=== PATIENT | female | born 1935 | race Caucasian/White ===

== ENCOUNTER 2019-06-09 11:31 | Outpatient (RCR) | payer MEDICARE, MEDICAID, SELFPAY ==
[2019-06-09 12:17] LABS: Thyroid Stimulating Hormone 3.89 uIU/mL (0.27-4.20)
== END 2019-06-26 23:59 | disposition home or self-care (01) ==
LOC: LAB 11:31
PROVIDERS: Family Provider Family Medicine; Visit Provider Family Medicine
DX: Z01.89 Encounter for other specified special examinations (principal)
CPT/HCPCS: 84443

== ENCOUNTER → 2020-07-04 14:06 | Outpatient (BNVA) | payer MEDICARE, MEDICAID, SELFPAY | PROVIDERS: Family Provider Family Medicine; Referring Provider Family Medicine; Visit Provider Specialist | DX: M17.0 Bilateral primary osteoarthritis of knee (principal) | CPT/HCPCS: 73560; 73565 ==

== ENCOUNTER 2020-09-16 14:55 | Outpatient (CLI) | payer MEDICARE, MEDICAID, SELFPAY ==
[2020-09-16 15:44] LABS: Basophils # 0.1 10^3/uL (0.0-0.1); Basophils % 1.2 %; Eosinophils # 0.3 10^3/uL (0.0-0.8); Eosinophils % 4.5 %; Hematocrit 33.3 % (37.0-47.0); Hemoglobin 10.4 g/dL (11.5-15.3); Lymphocytes # 1.6 10^3/uL (0.8-4.8); Lymphocytes % 27.2 %; Mean Corpuscular HGB Conc 31.2 g/dL (30.0-36.0); Mean Corpuscular Hemoglobin 31.6 pg (28.0-34.0); Mean Corpuscular Volume 101.2 fL (81-99); Mean Platelet Volume 9.4 fL (7.4-10.4); Monocytes # 0.5 10^3/uL (0.2-0.9); Monocytes % 7.6 %; Neutrophils # 3.55 10^3/uL (1.8-7.7); Neutrophils % 58.8 %; Nucleated Red Blood Cells % 0 %; Platelet Count 294 10^3/cmm (130-400); Red Blood Count 3.29 10^6/uL (4.1-5.3); Red Cell Distribution Width 12.6 % (12.1-15.1)
[2020-09-16 16:01] LABS: Anion Gap 14.2 (5-19); Blood Urea Nitrogen 27 mg/dL (8-23); Carbon Dioxide 27 mmol/L (22-29); Chloride 101 mmol/L (98-107); Glucose 120 mg/dL (65-115); Osmolality Calculated 292 mOsm/kg (285-295); Potassium 4.2 mmol/L (3.5-5.1); Sodium 138 mmol/L (136-145)
== END 2020-09-16 14:56 | disposition home or self-care (01) ==
PROVIDERS: PCP Family Medicine; Visit Provider Family Medicine
DX: R55 Syncope and collapse (principal)
CPT/HCPCS: 80048; 85025

== ENCOUNTER 2020-11-22 16:45 | Inpatient (IN) | payer MEDICARE, MEDICAID, SELFPAY ==
--- NOTE | 2020-11-18 13:42 | ECG_ITS ---
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 Measurements Intervals [place] Rate: 65 P: -27 TX: 213 QRS: -28 QRSD: 82 T: 15 QT: 411 QTc: 430 Interpretive Statements SINUS RHYTHM WITH FIRST DEGREE AV BLOCK LOW QRS VOLTAGE IN PRECORDIAL LEADS [QRS DEFLECTION < 1.0 mV IN CHEST LEADS] PATTERN CONSISTENT WITH PULMONARY DISEASE INFERIOR MYOCARDIAL INFARCTION [40+ ms Q WAVE AND/OR ST/T ABNORMALITY IN II/aVF], PROBABLY OLD MARKED ST ELEVATION, CONSIDER ANTEROSEPTAL INJURY [MARKED ST ELEVATION W/O NORMALLY INFLECTED T WAVE IN V1-V4] ACUTE [place] No previous ECG available for comparison Electronically Signed On 11-20-2020 9:45:41 CDT by Petty Rosario M.D. [id number]
[2020-11-18 14:00] VITALS: BMI 27.0
--- NOTE | 2020-11-18 14:21 | ANES.PREANE2 ---
Pre-Anesthetic Assessment Pre-Anesthetic Assessment: Height/Weight: Height 1.55 m Weight 64.864 kg Preop Diagnosis: Knee pain Proposed Procedure: Operation Date: 11/22/20 13:55 Proposed Procedures p Right Total Knee Arthroplasty 16047 M17.10(Right) - Madonna Zuniga MD Familial anesthetic complications: NOne Social: Social History: No alcohol and No tobacco Exam: Pre-Anes Outpt Exam: alert, oriented x 3, clear to auscultation bilaterally and regular rate & rhythm Airway: Cervical ROM: WNL MP: 2 Dentition: Other (missing) Pulmonary: Pulmonary: COPD (2 L NC at night) CV/HEM: CV/HEM: Afib Comments: Hx B/L PEs 3 years ago, patient states she had heart cath 3 years ago as well, and it was clear. Patient's family will try to get those records to us. Spoke with Dr. Rosario regarding EKG, states nothing acute is going on, but the brugada pattern could be accurate. Despite that he recommends no treatment at this time. Recommends ok to proceed with surgery but will need higher monitoring perioperatively for arrythmias. May be worth it to admit patient to Cardiac step down after surgery. GI: GI: GERD Anesthetic Plan: ASA status: 3 Anesthesia: Regional (specify below) Other: spinal Risk of > 500 ml blood loss (7ml/kg in children): No PFSH Anesthesia PFSH: Medical History A-fib COPD (chronic obstructive pulmonary disease) History of pulmonary embolus (PE) Hypothyroidism Social History Smoking and tobacco status: former smoker Alcohol intake: never Data Anesthesia CBC & Chem 7: 11/18/20 13:50 11/18/20 13:50 Cardiac Studies: No Data to Display
[2020-11-18 14:23] LABS: Basophils # 0.1 10^3/uL (0.0-0.1); Eosinophils # 0.2 10^3/uL (0.0-0.8); Eosinophils % 2.4 %; Hematocrit 35.6 % (37.0-47.0); Lymphocytes # 2.2 10^3/uL (0.8-4.8); Lymphocytes % 35.1 %; Mean Corpuscular HGB Conc 30.9 g/dL (30.0-36.0); Mean Corpuscular Hemoglobin 31.6 pg (28.0-34.0); Mean Corpuscular Volume 102.3 fL (81-99); Mean Platelet Volume 9.9 fL (7.4-10.4); Monocytes # 0.4 10^3/uL (0.2-0.9); Monocytes % 6.5 %; Neutrophils # 3.42 10^3/uL (1.8-7.7); Neutrophils % 54.2 %; Nucleated Red Blood Cells % 0 %; Platelet Count 246 10^3/cmm (130-400); Red Blood Count 3.48 10^6/uL (4.1-5.3); Red Cell Distribution Width 14.6 % (12.1-15.1); White Blood Count 6.3 10^3/uL (4.0-10.0)
[2020-11-18 14:35] LABS: Alanine Aminotransferase 7 U/L (0-33); Albumin Level 4.1 g/dL (3.5-5.2); Alkaline Phosphatase 66 IU/L (35-105); Anion Gap 13.6 (5-19); Aspartate Amino Transferase 16 U/L (0-32); Blood Urea Nitrogen 29 mg/dL (8-23); Calcium 9.1 mg/dL (8.5-10.5); Carbon Dioxide 28 mmol/L (22-29); Chloride 102 mmol/L (98-107); Globulin 3.1 g/dL (1.3-4.6); Glucose 99 mg/dL (65-115); Osmolality Calculated 294 mOsm/kg (285-295); Potassium 4.6 mmol/L (3.5-5.1); Sodium 139 mmol/L (136-145); Total Bilirubin 0.4 mg/dL (0.15-1.2); Total Protein 7.2 g/dL (6.6-8.7)
[2020-11-18 15:02] LABS: Add Urine Microscopic? NO; Charge for UA Resulting for Rev
[2020-11-18 15:11] LABS: Bilirubin Urine 1+ (Negative); Blood Urine Neg (Negative); Glucose Urine UA Norm (Normal); Ketones Urine Negative (Negative); Leukocyte Esterase Urine Negative (Negative); Nitrate Urine Negative (Negative); Protein Urine Neg (Negative); Urine Appearance Clear (CLEAR); Urine Color Yellow (Yellow); Urobilinogen Urine Norm (Negative); pH Urine 6 (5-7)
[2020-11-22] VITALS (20 sets, daily range): BP systolic 103–164; BP diastolic 29–77; PULSE 57–65; RESP 16–18; TEMP 35.6–36.7; O2SAT 90–97
[2020-11-22] MEDS: acetaminophen 1,000 MG/100 ML PIGGYBACK 400 MG IV ×2 (07:20→18:38)
[2020-11-22] MEDS: sodium chloride 0.9% 1,000 ML 30 ML IV (07:20)
--- NOTE | 2020-11-22 07:22 | P.ANESUD_ITS ---
Pre-Anesthetic Update Pre-Anesthetic Assessment: Date of Surgery/Procedure: 11/22/20 Preop Codi gnosis: Primary osteoarthritis right knee Proposed Procedure: Operation Date: 11/22/20 07:00 Proposed Procedures p Right Total Knee Arthroplasty 72822 M17.10(Right) - Madonna Zuniga MD Any changes to Pre-Anesthetic Assessment?: No Last Intake: Intake Last Liquid Date 11/22/20 Last Liquid Time 17:00 Last Solid Date 11/21/20 Last Solid Time 17:00 Vitals: Temperature 97.7 F 11/22/20 06:17 Temperature Source Temporal Artery S can 11/22/20 06:17 Pulse Rate 62 11/22/20 06:17 Pulse Rhythm 11/22/20 06:17 Pulse Strength 3+ Normal 11/22/20 06:17 Respiratory Rate 16 11/22/20 06:17 Blood Pressure 138/57 11/22/20 06:17 Blood Pressure Twila n 84 11/22/20 06:17 Pulse Oximetry 97 11/22/20 06:17 Oxygen Delivery Me thod 11/22/20 06:17 Exam: Pre-Anes Outpt Exam: alert, oriented x 3, clear to auscultation bilaterally and regular rate & rhythm Other Pertinent Information: Other Pertinent Information: SAB, adductor blk. Cardiac Studies: No Data to Display
[2020-11-22] MEDS: CELEcoxib 200 mg Capsule 400 MG PO (07:25)
--- NOTE | 2020-11-22 07:58 | P.HPUD_ITS ---
Surgery/Procedure H&P Update DATE OF PROCEDURE: November 22, 2020 DATE H&P PERFORMED: 11/07/20 H&P UPDATE INFORMATION: I have reviewed H&P completed within last 30 days, I have examined patient prior to procedure, No changes to prior documentation and H&P is in [facility] EMR on date indicated PREOP DIAGNOSIS: Primary osteoarthritis right knee PLANNED PROCEDURE: Operation Date: 11/22/20 07:00 Proposed Procedures p Right Total Knee Arthroplasty 15643 M17.10(Right) - Madonna Zuniga MD Related Problem List Diagnoses (1) Primary osteoarthritis of right knee:
--- NOTE | 2020-11-22 08:14 | PC.NURSE ---
IV STARTED BY DR LINTON
--- NOTE | 2020-11-22 14:13 | ANES.PROC ---
Anesthesia Procedures Procedure/Date: 11/22/20 Nerve Block ^: Nerve Block 1: Main Anesthesia: spinal anesthesia block Time Out Performed: Yes Consent: requested by attending/covering physician, from patient, risks and benefits reviewed and patient agrees to proceed Nerve block location: adductor canal (right) Anesthesia monitors applied: pulse oximetry, EKG, BP cuff and oxygen Nerve block position: supine Anesthetic Used: ropivicaine 0.5% Amount of anesthesia used (mL): 20 Ultrasound used to: recognize landmarks Nerve Stimulator Used?: No Interscalene/Femoral BLK: 4 stimuplex 21 g needle used for position and inplane approach and visualize local anesthetic spread Patient Tolerated Procedure: well Complications: none
[2020-11-22] MEDS: vancomycin 1,000 MG SDV 1000 MG (15:34)
[2020-11-22] MEDS: tranexamic acid 1,000 mg/10mL SDV 1000 MG (15:35)
[2020-11-22] MEDS: ceFAZolin 1,000 mg SDV 1000 MG (15:35)
--- NOTE | 2020-11-22 15:39 | SUR.OPER ---
Called daughter, Jen and notified her of start.
--- NOTE | 2020-11-22 17:04 | PM.PACU ---
Documented by User: Yoni Barakat CRNA 11/22/20 17:04 PACU note PACU note: VSS, Good respiratory effort, report to [employer]PER[employer] MANAGER Post-Anesthesia Exam: awake
--- NOTE | 2020-11-22 17:10 | P.CONIM_ITS ---
Providers/Reason For Consult Consulting Physician/Specialty*: MD Carl/internal medicine Reason for Consult*: Management of medical problems. Attending Physician: Madonna Zuniga MD Primary Care Provider: Milagros Pimentel MD, [facility] [place] [facility] History of Present Illness History of Present Illness History as per daughter. April Hampton is a 85 year old female with past medical history of A. 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 Patient underwent ORIF today. Tolerated procedure well. Estimated blood loss 20 cc getting 1000 cc fluid. As per daughter patient has not had any active medical problems. Has not had any fever, diarrhea, dysuria has been working well with physical therapy but limited recently because of arthritis. Respiratory patient does not have any chest pain or palpitations. No blood work in the system. Internal medicine consulted for management of medical problems. Review of Systems General: Reports: ROS unobtainable due to mental status Meds/Allergies Home Medications and Allergies Home Medications Medication Instructions Recorded Confirmed Last Taken Type albuterol sulfate 2.5 mg/0.5 mL 5 mg INHALATION Q6H 07/04/20 11/22/20 11/21/20 History solution for nebulization albuterol sulfate 90 mcg/actuation 1 inh INHALATION QID 07/04/20 11/22/20 Unknown History aerosol inhaler amiodarone 200 mg tablet 200 mg PO DAILY 07/04/20 11/22/20 11/21/20 History apixaban 5 mg tablet 5 mg PO BID 07/04/20 11/18/20 11/17/20 History gabapentin 300 mg capsule 200 mg PO TID cap 07/04/20 11/22/20 11/21/20 12:00 History levothyroxine 88 mcg capsule 88 mcg PO DAILY 07/04/20 11/22/20 11/22/20 05:00 History mirtazapine 15 mg tablet 15 mg PO DAILY 07/04/20 11/22/20 11/21/20 History omeprazole 20 mg capsule,delayed 20 mg PO DAILY 07/04/20 11/22/20 11/21/20 History release polyethylene glycol 3350 17 gram 17 g PO DAILY 07/04/20 11/22/20 Unknown History oral powder packet tramadol 50 mg tablet 50 mg PO Q6H PRN 07/04/20 11/18/20 Unknown History Allergies Allergy/AdvReac Type Severity Reaction Status Date / Time No Known Allergies Allergy Verified 11/22/20 06:22 Current Medications Current Medications Generic Name Dose Route Start Last Admin Trade Name Freq PRN Reason Stop Dose Admin Sodium Chloride 1,000 mls @ 30 mls/hr 11/22/20 06:15 11/22/20 07:20 Sodium Chloride 0.9% IV 11/23/20 06:14 30 mls/hr .Q24H ANGELINE Administration PFSH Acute PFSH: Medical History (Updated 11/23/20 @ 12:42 by Thaddeus Henry MD) A-fib COPD (chronic obstructive pulmonary disease) History of pulmonary embolus (PE) Hypothyroidism Shingles Family History (Updated 11/23/20 @ 12:46 by Thaddeus Henry MD) Other CAD (coronary artery disease) Diabetes Social History Smoking and tobacco status: former smoker Alcohol intake: never Vitals/I&O/Wt Last Vital Signs Temp 97.7 F 11/22/20 06:17 Pulse 62 11/22/20 06:17 Resp 16 11/22/20 06:17 BP 138/57 11/22/20 06:17 Pulse Ox 97 11/22/20 06:17 11/22/20 11/22/20 11/22/20 06:59 14:59 22:59 Intake Total 150 / 150 Balance 150 / 150 Physical Exam Narrative: EXAM NARRATIVE: General: Sedated but arousable, on nasal cannula. HEENT: PERRLA, pupils bilaterally equal and reactive Chest:Bronchial breath sounds b/l ,decreased air entry, equal good air entry bilaterally, no more fine basal crackles CVS: S1-S2 irregularly irregular, no tachycardia, no murmurs, no gallops, no rubs Abdomen: Soft, nontender, no organomegaly, bowel sounds present, morbidly obese Neuro: Sedated but arousable. Moving all limbs. Urinary Catheter Management^: [place]: Cath Placed During This Visit: yes Urinary Catheter Date of Insertion: 11/22/20 Urinary Catheter Time of Insertion: 13:35 A&P Assessment and plan (1) Primary osteoarthritis of knees, bilateral: Status: Acute (2) History of pulmonary embolus (PE): Status: Acute (3) COPD (chronic obstructive pulmonary disease): Status: Acute (4) A-fib: Status: Acute Additional A&P Information Degenerative osteoarthritis of bilateral knee/post total knee arthroplasty: Postoperative day 0. Anticoagulation, physical therapy, perioperative antibiotics, pain management as per Dr. Zuniga. Check CBC, CMP, iron panel, TSH, A1c, lipid panel, procalcitonin. Atrial fibrillation: Patient should be on telemetry. Continue with amiodarone as rate control medication. Continue with Eliquis 5 mg twice daily once okay with Dr. Zuniga. History of pulmonary embolism: Oxygen supplementation keeping saturation over 92%. Continue with Eliquis once okay with Dr. Zuniga. Continue other chronic medications. We will change treatment plan as per clinical picture. Full code. Regular cardiac diet once okay with Dr. Zuniga. Anticoagulation as per orthopedics, foot pumps bilateral. Thank you for consultation. Consult Attestations Medical Necessity Statement: As per primary team. Time Spent in Patient Care: Greater than 35 minutes (>than 50% of time spent in counselling and/or direct pt care on unit) . Coding Level of Care Code Acute Briar Wood Sorter for Emi Browne Diagnoses Primary osteoarthritis of knees, bilateral M17.0 Primary osteoarthritis of right knee M17.11 History of pulmonary embolus (PE) Z86.711 COPD (chronic obstructive pulmonary disease) J44.9 A-fib I48.91
--- NOTE | 2020-11-22 17:12 | XR_ITS ---
WS: [id number] Right knee, 2 views, 11/22/2020 Clinical Data: Status post right total knee Comparison: Bilateral knees, 07/04/2020 Findings: The right knee arthroplasty demonstrates the components are in good position. There is postoperative air in the joint space. Anterior surgical seng are present. XR/XR knee RT 3V* [id number] Impression: Right knee arthroplasty Kellgren-Inder Classification: NA
[2020-11-22] MEDS: fentaNYL 50 mcg/mL INJ 2mL IVP (17:14)
--- NOTE | 2020-11-22 17:14 | P.OP_ITS ---
Operative Report Date of procedure: November 22, 2020 Pre-op Diagnosis: Primary osteoarthritis right knee Post-op diagnosis: same Post-op Findings: Severe degenerative osteoarthritis Procedure Done: Right total knee arthroplasty Implants: The Gordon total knee system with a size 4 triathlon beaded posterior stabilized femur left, a triathlon titanium tibial component size 3 beaded, a triathlon X3 posterior stabilized tibial bearing insert size 3 X 9 mm and a beaded triathlon titanium asymmetric patella size 35 x 10 mm Specimens removed/disposition: Bone, disposed of Pathology: none sent Surgeon: Madonna Zuniga Cut Filer: [employer] [facility] OR technicians Anesthesia: MAC (With spinal, ASA 3) Estimated blood loss (mL): 20 Tourniquet time (min): 93 IV fluids (mL): 1,000 Urine output (mL): 200 Complications: None Findings: Severe degenerative osteoarthritis right knee with osteophytes. No flexion contracture. Condition: stable Disposition: PACU (Then to floor for postoperative rehabilitation, monitoring with history of PE, and medical management) Brief History: This 85-year-old woman is admitted to the hospital postoperatively following total knee arthroplasty. She had significant symptoms from her degenerative osteoarthritis of the knee which caused her to have significant issues with activities of daily living. She has a history of significant PE which caused her an extended hospitalization. She is chronically on Eliquis which has been discontinued. She will require inpatient monitoring and services to assure that she does not have a PE following this procedure. She will be placed on Eliquis postoperatively for DVT prophylaxis. Obviously, she will need to take this for a couple of days prior to being discharged back to the [place] [facility]. Procedure: The patient was brought to the operating theater, and after undergoing adequate spinal anesthesia with MAC, ASA 3, the right lower extremity was prepped with Dura-Prep and draped in usual fashion following placement of a tourniquet high on the leg. The leg was then draped free. Following prepping and draping, the leg was exsanguinated, and the tourniquet was elevated to 250 mm Hg for a total tourniquet time of 93 minutes. Prior to elevation of the tourniquet, but following exposure of the site of surgery, a surgical pause was performed. At the time of the surgical pause, we confirmed the site and side of surgery. Additionally, we confirmed the appropriate and timely administration of preoperative antibiotics, Ancef 2 g. and Transexemic acid 1 g. The availability of equipment was confirmed, and the patient's identity was verbalized as well. Following the surgical pause, an incision was made centering over the patella continuing proximally and distally as necessary to allow access to the knee joint. Dissection continued through skin and soft tissues using a scalpel. Hemostasis was obtained using electrocautery. The skin incision was followed by a median parapatellar arthrotomy. The leg was extended and the patella was everted. Following this, the leg was returned to flexed position. The distal femur was exposed and a drill hole was made in this for placement of the distal femoral jig. The distal femoral jig was set at 5? of valgus. The distal femoral cutting block was then placed in appropriate position, and an jose wing was used to confirm an appropriate amount of distal femur would be resected. The distal femoral resection was accomplished with 8 mm of bone being resected distally. After the distal femoral resection had been accomplished, the femur was measured and it measured a size 4. Medial lateral dimension also measured a size 4. A size 4 femoral cutting block was placed in position, and we were then able to accomplish the anterior, posterior and chamfer cuts. This jig was then removed and the notch guide was placed in position. With the notch guide in appropriate position, the notch was excised including resection of the anterior and posterior cruciate ligaments. This notch was to allow for the posterior stabilized femoral component. At this point, the femur was prepared and attention was directed to the proximal tibia. The posterior knee retractor was placed along with medial and lateral retractors. Further resection of the menisci was accomplished as we had better visualization. A complete meniscectomy was performed both medially and laterally with care being taken to protect the popliteus. Retractors were then placed so that the proximal tibia was well visualized. A drill hole was then made in the tibia for placement of the intramedullary guide. This guide was placed so that approximately 2 mm of bone would be resected from the deficient medial tibial plateau. The intramedullary guide was utilized supplemented with an extramedullary guide to assure appropriate alignment for the proximal tibial resection. The proximal tibial jig was then evaluated, pinned in position, and the proximal tibial resection was accomplished without difficulty. The jig was removed, and the proximal tibia was measured. It measured a size 3. We then attempted a trial reduction with a size 3 by 9 mm insert. The femoral component was placed in position for the trial reduction, and the knee was placed through range of motion. With this, there was excellent stability with excellent varus- valgus alignment with appropriate patellar tracking. Extension was noted to be full as well. This was felt to be the appropriate size insert. There was full extension and flexion without lift off and the rotation of the tibia was marked. Alignment was checked from the hip to the ankle, and this was noted to be appropriate as well. Attention was then directed to the patella. The patella was measured with a caliper. We resected sufficient patella to leave approximately 14 mm of patella remaining. Measurements of the patella then indicated that a size asymmetric 35 mm x 10 mm was the appropriate patellar size. We then placed the jig to drill for the 3 pegs of the press-fit patella, and these drill holes were made without incident. A trial patella was then placed, and the knee was placed through range of motion. The patella was noted to track nicely without evidence of subluxation. The femur was prepared for a press-fit femur by drilling 2 holes for the femoral pegs. All trial components were subsequently removed. The tibial tray was then pinned into position, and we broached the tibia for the stem of the tibial component. Subsequently, 4 drill holes were made for placement of the press-fit tibia. This was accomplished without difficulty. Care was taken to assure appropriate rotation of the tibia as well as appropriate position on the proximal tibia. The tibial tray was completely seated on the proximal tibia. Following broaching, the tibial guide was removed, and all surfaces were copiously irrigated. The surfaces were then dried and a bone plug was placed into the distal femur. Exparel was also injected at this point. The Tritanium tibia was impacted into position. The beaded femur was then impacted into position in a cementless fashion. The tibial insert was placed. The patella was pressed into position with a patellar clamp. The knee was irrigated with 20 mL of Betadine and 500 mL of normal saline, and this was allowed to remain in the knee for 3-4 minutes. The knee was then copiously irrigated and suctioned dry. Attention was then directed to closure. Closure was accomplished with 0 Vicryl in the fascial tissues. Following this, a 2-0 Monocryl was used in the subcutaneous tissues, and the skin was closed with skin seng. A sterile dressing was then placed consisting of dermabond Prineo, Telfa, 4x4's, sterile soft roll, and an Adán wrap. The patient was returned the Recovery Room in a satisfactory condition. X-rays were obtained there. The pat ient will be discharged to the floor for postoperative rehabilitation and pain management. Associated Problem List Diagnoses (1) Primary osteoarthritis of right knee:
--- NOTE | 2020-11-22 17:57 | SUR.PHASEI ---
1658 PT TO PACU AWAKE ALERT PT WAS A SPINAL ANESTHESIA WITH ADDUCTOR CANAL BLOCK, PT ABLE TO MOVE BILAT TOES, PT SPINAL LEVEL AT T-12 LEVEL, PT VERBALLY DENIES PAIN AND NAUSEA, C/O OF COLD, WARM BLANKETS X 4 TO PT, RT KNEE DRESSING D/IFIRST ICE TO KNEE X RAY HERE. DISTAL FOOT PINK WARM WITH STRONG REGULAR PULSE NOTED AND MARKED QUACH TO DD WITH LT YELLOW URINE TO TUBING AND BAG.
--- NOTE | 2020-11-22 17:59 | SUR.PHASEI ---
1735 PT REPORT CALLED TO FLOOR PT DAUGHTER IN WAITING ROOM UPDATED BY DR PATTEN AND ABLE TO WALK UP TO FLOOR WITH PT AND NURSE, PT TO FLOOR AWAKE ALERT TALKATIVE WITH STAFF AND DAUGHTER.
--- NOTE | 2020-11-22 18:24 | ANE.PACU2 ---
Inpatient post-anesthesia follow up: Airway intact: Yes Vital signs: Temperature 97.6 F Pulse Rate 62 Respiratory Rate 17 Blood Pressure 154/29 Pulse Oximetry 92 Oxygen Delivery Me thod Room Air Oxygen Flow Rate Fraction of Inspir ed Oxygen Hydration adequate: Yes Nausea and vomiting: No Pain level: 1 Mental status: Baseline
[2020-11-22 18:35] LABS: Basophils # 0.1 10^3/uL (0.0-0.1); Basophils % 0.9 %; Eosinophils # 0.2 10^3/uL (0.0-0.8); Eosinophils % 2.7 %; Hematocrit 34.9 % (37.0-47.0); Hemoglobin 10.9 g/dL (11.5-15.3); Lymphocytes % 38.8 %; Mean Corpuscular HGB Conc 31.2 g/dL (30.0-36.0); Mean Corpuscular Hemoglobin 32.1 pg (28.0-34.0); Mean Corpuscular Volume 102.6 fL (81-99); Mean Platelet Volume 9.7 fL (7.4-10.4); Monocytes # 0.4 10^3/uL (0.2-0.9); Monocytes % 4.9 %; Neutrophils # 4.07 10^3/uL (1.8-7.7); Neutrophils % 52.2 %; Nucleated Red Blood Cells % 0 %; Platelet Count 215 10^3/cmm (130-400); White Blood Count 7.8 10^3/uL (4.0-10.0)
[2020-11-22] MEDS: iron polysaccharide complex 150 mg Capsule PO (18:37)
[2020-11-22] MEDS: sennosides-docusate Tablet 2 TAB PO (18:37)
[2020-11-22] MEDS: apixaban 5 mg Tablet PO (18:38)
[2020-11-22] MEDS: oxyCODONE 5 mg IR Tab/Cap PO ×2 (18:38→22:31)
[2020-11-22 19:25] LABS: Procalcitonin 0.08 ng/mL (0-0.5); Thyroid Stimulating Hormone 3.62 uIU/mL (0.27-4.20)
[2020-11-22 19:41] LABS: Alanine Aminotransferase 9 U/L (0-33); Albumin Level 3.5 g/dL (3.5-5.2); Alkaline Phosphatase 63 IU/L (35-105); Aspartate Amino Transferase 17 U/L (0-32); Blood Urea Nitrogen 22 mg/dL (8-23); Calcium 8.3 mg/dL (8.5-10.5); Carbon Dioxide 22 mmol/L (22-29); Chloride 106 mmol/L (98-107); Globulin 2.9 g/dL (1.3-4.6); Glucose 90 mg/dL (65-115); Iron 72 ug/dL (37-145); Osmolality Calculated 291 mOsm/kg (285-295); Percent Saturation 24.3 % (20-50); Sodium 139 mmol/L (136-145); Total Bilirubin 0.3 mg/dL (0.15-1.2); Total Iron Binding Capacity 296 mcg/dl; Total Protein 6.4 g/dL (6.6-8.7); Unsaturated Iron Binding 224 ug/dL (112-347)
[2020-11-22 19:44] LABS: Anion Gap 15.5 (5-19); Potassium 4.5 mmol/L (3.5-5.1)
[2020-11-22] MEDS: chlorhexidine gluconate 0.12% Btl 473 mL 30 ML MUCOUS MEM (20:19)
[2020-11-22] MEDS: gabapentin 100 mg Capsule 200 MG PO (20:20)
[2020-11-23] VITALS (11 sets, daily range): BP systolic 103–117; BP diastolic 56–65; PULSE 65–74; RESP 12–18; TEMP 36.3–36.7; O2SAT 90–97
[2020-11-23 02:42] LABS: Basophils # 0.1 10^3/uL (0.0-0.1); Eosinophils # 0.1 10^3/uL (0.0-0.8); Eosinophils % 1.2 %; Hematocrit 30.6 % (37.0-47.0); Hemoglobin 9.5 g/dL (11.5-15.3); Lymphocytes # 1.2 10^3/uL (0.8-4.8); Lymphocytes % 16.6 %; Mean Corpuscular Hemoglobin 31.8 pg (28.0-34.0); Mean Corpuscular Volume 102.3 fL (81-99); Mean Platelet Volume 9.5 fL (7.4-10.4); Monocytes # 0.5 10^3/uL (0.2-0.9); Monocytes % 6.3 %; Neutrophils # 5.44 10^3/uL (1.8-7.7); Neutrophils % 74.5 %; Nucleated Red Blood Cells % 0 %; Platelet Count 190 10^3/cmm (130-400); Red Blood Count 2.99 10^6/uL (4.1-5.3); Red Cell Distribution Width 14.1 % (12.1-15.1); White Blood Count 7.3 10^3/uL (4.0-10.0)
[2020-11-23 02:48] LABS: Alanine Aminotransferase 8 U/L (0-33); Albumin Level 3.2 g/dL (3.5-5.2); Alkaline Phosphatase 57 IU/L (35-105); Anion Gap 12.2 (5-19); Aspartate Amino Transferase 14 U/L (0-32); Blood Urea Nitrogen 20 mg/dL (8-23); Calcium 8.1 mg/dL (8.5-10.5); Carbon Dioxide 25 mmol/L (22-29); Chloride 104 mmol/L (98-107); Globulin 2.5 g/dL (1.3-4.6); Glucose 111 mg/dL (65-115); Osmolality Calculated 287 mOsm/kg (285-295); Potassium 4.2 mmol/L (3.5-5.1); Sodium 137 mmol/L (136-145); Total Bilirubin 0.4 mg/dL (0.15-1.2); Total Protein 5.7 g/dL (6.6-8.7)
[2020-11-23] MEDS: acetaminophen 1,000 MG/100 ML PIGGYBACK 400 MG IV ×2 (03:14→10:15)
[2020-11-23] MEDS: gabapentin 100 mg Capsule 200 MG PO ×3 (07:58→22:33)
[2020-11-23] MEDS: levothyroxine 88 mcg Tablet PO (07:58)
[2020-11-23] MEDS: iron polysaccharide complex 150 mg Capsule PO ×2 (07:58→17:56)
[2020-11-23] MEDS: sennosides-docusate Tablet 2 TAB PO ×2 (07:58→17:54)
[2020-11-23] MEDS: mirtazapine 15 mg Tablet PO (07:58)
[2020-11-23] MEDS: multivitamin therapeutic Tablet 1 TAB PO (07:58)
[2020-11-23] MEDS: pantoprazole DR 40 mg Tablet PO (07:58)
[2020-11-23] MEDS: cholecalciferol (vitamin D3) 1,000 unit Tablet 1000 UNIT PO (07:58)
[2020-11-23] MEDS: amiodarone 200 mg Tablet PO (07:59)
[2020-11-23] MEDS: apixaban 5 mg Tablet PO ×2 (07:59→17:56)
[2020-11-23] MEDS: chlorhexidine gluconate 0.12% Btl 473 mL 30 ML MUCOUS MEM ×3 (07:59→22:32)
[2020-11-23] MEDS: calcium carbonate 500 mg Chew Tablet 1000 MG PO ×2 (07:59→17:54)
[2020-11-23] MEDS: CELEcoxib 200 mg Capsule PO (07:59)
--- NOTE | 2020-11-23 09:56 | PC.CHAP ---
Pastoral Care Encounter/Spiritual Assessment Type of Contact [] Declined supervisor instrument repair visit [] Patient/Family/Request visit [] Outpatient visit [] Follow-up visit [] Physician referral [] Code/Alert [x] Routine visit [] Staff referral [] Actively dying [] Patient sleeping [] Family support [] [] Out of room [] Palliative care [] [] Receiving care in room [] Pre-surgical visit [] Trauma [] Long length of stay [] ICU visit [] Other: Relational/Emotional Strength [] Patient feels connected with others/family/visitors/staff [] Distress [] Loneliness/isolation [] Abandonment Spirituality of Patient [x] Person of Huma [] Attends Orthodox of their Huma [x] Believes in Prayer [] Reads Bible or Religion materials [] There are Spiritual issues to be addressed 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 Interventions [x] Prayer [] Active listening [] Non-anxious presence [] Spiritual/emotional support [] Crisis/trauma care [] Spiritual counseling [] Bereavement support [] Provided bereavement packet [] Provided Bible/devotional materials [] Provided toy/stuffed animal, coloring book to patient or family member [] Provided Communion [] Anointing/[place] [] Salvation x[] Completed spiritual assessment [] Other: Impact on Illness or Injury [] Angry [] Fearful [] Anxious [] Often cries [] Exhaustion [] Unable to work [] Unable to attend caodaism [] Unable to walk/stand [] Unable to read [] Unable to drive [] Unable to eat/drink [] Unable to sleep [] Unable to be with family [] Patient intubated [] Other: Summary little pain Time spent with patient 10 min
--- NOTE | 2020-11-23 12:52 | P.PN_ITS ---
Subjective Subjective: Interval history: No complaints overnight. Postoperative day 1. On examination lying comfortably in bed. States wants to sleep and feeling tired. No acute events overnight. Has remained hemodynamically stable. Currently on 2 L oxygen supplementation saturating 96%. Vitals/I&O/Wt Last Vital Signs Temp 97.3 F L 11/23/20 03:53 Pulse 74 11/23/20 09:23 Resp 18 11/23/20 09:23 BP 103/56 11/23/20 03:53 Pulse Ox 94 11/23/20 09:23 11/22/20 11/23/20 11/23/20 22:59 06:59 14:59 Intake Total 530 / 680 150 / 830 Output Total 420 / 420 400 / 820 Balance 110 / 260 -250 / 10 Physical Exam Narrative: EXAM NARRATIVE: General: No acute distress, AO x3 HEENT: PERRLA, pupils bilaterally equal and reactive Chest:Bronchial breath sounds b/l ,decreased air entry, equal good air entry bilaterally, no more fine basal crackles CVS: S1-S2 irregularly irregular, no tachycardia, no murmurs, no gallops, no rubs Abdomen: Soft, nontender, no organomegaly, bowel sounds present, morbidly obese Neuro: AOx3, moving all limbs, no facial deformity Urinary Catheter Management^: Pitts: Cath Placed During This Visit: yes Reason for Continuing Indwelling Catheter: Perioperative Use in Selected Surgeries Urinary Catheter Date of Insertion: 11/22/20 Urinary Catheter Time of Insertion: 13:35 Data : 11/23/20 02:06 11/23/20 02:06 A&P Assessment and plan (1) Primary osteoarthritis of knees, bilateral: Status: Acute (2) History of pulmonary embolus (PE): Status: Acute (3) COPD (chronic obstructive pulmonary disease): Status: Acute (4) A-fib: Status: Acute Additional A&P Information Degenerative osteoarthritis of bilateral knee/post total knee arthroplasty: Postoperative day 1. Physical therapy as per orthopedics team. Eliquis 5 mg twice daily will help with DVT prophylaxis as well. Hemoglobin 9.5 today mildly lower than baseline. We will continue to monitor. Pain management as per Dr. Zuniga. Will avoid oversedation. Atrial fibrillation: Continue telemetry. Continue with amiodarone and Eliquis. Patient has remained rate controlled. Echocardiogram. History of pulmonary embolism: Oxygen supplementation keeping saturation over 92%. Continue with Eliquis 5 mg twice daily. COPD: No acute exacerbation. DuoNebs every 6 hour. Incentive spirometry. Continue other chronic medications. We will change treatment plan as per clinical picture. TSH, procalcitonin, iron panel within normal limits. AMINATA Pitts. Full code. Regular cardiac diet Eliquis 5 mg twice daily, foot pumps bilateral. Thank you for consultation. Attestations Medical Necessity Statement*: As per primary team. Time Spent in Patient Care: Greater than 35 minutes (>than 50% of time spent in counselling and/or direct pt care on unit) . Coding Level of Care Code Acute Berry Planter for Emi Fwd Diagnoses Primary osteoarthritis of knees, bilateral M17.0 History of pulmonary embolus (PE) Z86.711 COPD (chronic obstructive pulmonary disease) J44.9 A-fib I48.91
[2020-11-23] MEDS: sodium chloride 0.9% 250 ML IV (14:49)
--- NOTE | 2020-11-23 15:03 | P.PN_ITS ---
Subjective Subjective: Interval history: Patient is postop day 1 following right total knee arthroplasty. She did well with her surgical intervention, but today, she seems much more confused than what she was prior to surgery. This is likely secondary to her anesthetic, but certainly, she is not safe for return to her normal living environment. She has worked some with therapy but this is limited by her confusion as well. She is being evaluated by the medical service. Vitals/I&O/Wt Last Vital Signs Temp 97.3 F L 11/23/20 03:53 Pulse 74 11/23/20 09:23 Resp 18 11/23/20 09:23 BP 103/56 11/23/20 03:53 Pulse Ox 94 11/23/20 09:23 11/23/20 11/23/20 11/23/20 06:59 14:59 22:59 Intake Total 150 / 830 270 / 270 Output Total 400 / 820 Balance -250 / 10 270 / 270 Physical Exam Const: COMMON NORMALS: no acute distress, average body habitus and alert GENERAL APPEARANCE: cooperative and comfortable ORIENTATION/CONSCIOUSNESS: Yes awake HENMT: COMMON NORMALS: normocephalic and atraumatic HEAD & SCALP: normocephalic and atraumatic Eye: GENERAL EYE: appearance normal, both eyes and all related structures Chest: COMMONS NORMALS: normal inspection of the chest Resp: COMMON NORMALS: normal respiratory effort EFFORT & INSPECTION: Yes able to speak in complete sentences and Yes symmetric chest movement Extremity: RIGHT LOWER EXTREMITY: Yes knee joint (Minimal ecchymosis, swelling, and tenderness.) Right knee: Yes inspection (Dressing is dry and intact.), Yes palpation (Minimal to no tenderness to palpation about the knee), Yes ROM (Not evaluated.) and Yes neurovascular exam (Intact with no evidence of DVT.) Neuro: SENSORIUM/ORIENTATION: Yes alert Psych: COMMON NORMALS: mental status grossly normal APPEARANCE: Yes grossly normal ATTITUDE: Yes calm and Yes engaged ATTENTION/CONCENTRATION: Yes attention grossly intact Skin: COMMON NORMALS: no rashes or lesions noted GENERAL SKIN EXAM: no rashes or lesions noted Urinary Catheter Management^: Pitts: Cath Placed During This Visit: yes Reason for Continuing Indwelling Catheter: Perioperative Use in Selected Surgeries Urinary Catheter Date of Insertion: 11/22/20 Urinary Catheter Time of Insertion: 13:35 Data : 11/23/20 02:06 11/23/20 02:06 A&P Assessment and plan (1) History of total right knee replacement: The patient is on her first postoperative day following right total knee arthroplasty. The patient had surgery yesterday and it was uneventful. Postoperatively, she was admitted to the hospital for hospitalist care as well as aggressive physical therapy. The patient has a history of PE, and it was felt that if she would need to be observed for an extended period of time following the surgery. Additionally, since she was admitted, she has become more confused. Hospitalist team is involved and is evaluating her for this. With regard to her knee, outer dressings were removed. The wound was benign. Inner dressings were left intact. There was no evidence of DVT. She was neurologically intact. She has not had aggressive therapy today secondary to her confusion. Status: Acute (2) Primary osteoarthritis of right knee: Status: Resolved Attestations Medical Necessity Statement*: Patient requires ongoing monitoring following total knee arthroplasty due to multiple medical issues. Coding Level of Care Code Acute Picture Hanger for Emi Browne Diagnoses History of total right knee replacement Z96.651 Primary osteoarthritis of right knee M17.11
[2020-11-23] MEDS: ipratropium-albuterol 3 mL Neb INHALATION ×2 (15:05→20:40)
--- NOTE | 2020-11-23 17:09 | USCV_ITS ---
April Hampton Age: 85 Gender: F : 1935 Exam Date: 11/23/2020 06:20 Ordering Phys: Thaddeus Henry MD Technologist: Ara Rangel [place] [facility] [place] HISTORY OF PHTN AND DD BP: 103 / 56 HR: 68 Rhythm: Sinus Technical Quality: Adequate MEASUREMENTS (Male / Female) Normal Values 2D ECHO LV Diastolic Diameter PLAX 3.3 cm 4.2 - 5.9 / 3.9 - 5.3 cm LV Systolic Diameter PLAX 2.1 cm LV Chamber Size 3.1 cm IVS Diastolic Thickness 1.3 cm 0.6 - 1.0 / 0.6 - 0.9 cm IVS Systolic Thickness 1.5 cm LVPW Diastolic Thickness 1.9 cm 0.6 - 1.0 / 0.6 - 0.9 cm LVPW Systolic Thickness 1.8 cm RV Chamber Size 3.5 cm LVOT Diameter 2.0 cm LV Ejection Fraction 2D Teich 67.6 % LV Ejection Fraction MOD 2C 75.7 % LV Ejection Fraction 2C AL 78.6 % LA Diameter 3.2 cm LA Width 3.0 cm LA Height 3.4 cm RA Width 4.0 cm RA Height 4.5 cm Aorta at Sinotubular Diameter 2.7 cm M-MODE LV Diastolic Diameter MM 4.6 cm 4.2 - 5.9 / 3.9 - 5.3 cm LV Systolic Diameter MM 3.6 cm LV Ejection Fraction MM Teich 42.4 % IVS Diastolic Thickness MM 1.0 cm 0.6 - 1.0 / 0.6 - 0.9 cm IVS Systolic Thickness MM 1.0 cm LVPW Diastolic Thickness MM 1.5 cm 0.6 - 1.0 / 0.6 - 0.9 cm LVPW Systolic Thickness MM 1.3 cm Aortic Annulus Diameter 3.6 cm LA Ao Ratio MM 1.1 MV E Point Septal Separation 0.5 cm DOPPLER AV Peak Velocity 182.0 cm/s LVOT Peak Velocity 99.0 cm/s AV Area Cont Eq vti 2.1 cm squared AV Area Cont Eq pk 1.7 cm squared MV Area PHT 2.1 cm squared Mitral E to A Ratio 0.8 MV E' Velocity 60.0 cm/s Mitral E to MV E' Ratio 10.8 Mitral E to LV E' Lateral Ratio 10.1 Mitral E to LV E' Septal Ratio 11.7 TR Peak Velocity 306.5 cm/s TR Peak Gradient 37.6 mmHg TR Mean Velocity 224.0 cm/s TR Mean Gradient 22.1 mmHg TR Velocity Time Integral 106.9 cm TV Peak E Velocity 57.0 cm/s Right Atrial Pressure 5.0 mmHg Pulmonary Artery Systolic Pressu 42.6 mmHg PV Peak Velocity 64.0 cm/s RV Acceleration Time 0.2 s RV Ejection Time 0.3 s RV AcT/ET 0.5 FINDINGS Left Ventricle Normal left ventricular size. LV systolic function is normal with EF of 55-60%. No regional wall motion abnormalities. Grade 1 diastolic dysfunction Right Ventricle The right ventricle is normal in size and function. Right Atrium The right atrium is normal in size. Left Atrium The left atrium is normal in size. Mitral Valve Mild mitral annular calcification without significant stenosis or prolapse. There is trace mitral regurgitation. Aortic Valve Structurally normal aortic valve without significant sclerosis or stenosis. There is no aortic regurgitation. Tricuspid Valve Structurally normal tricuspid valve without significant stenosis. Mild tricuspid regurigitation. RVSP is 40-45mmHg. This is consistent with mild pulmonary hypertension Pulmonic Valve Structurally normal pulmonic valve without significant stenosis. There is no pulmonic regurgitation. Pericardium Normal pericardium without effusion. Aorta Normal ascending aorta dimension. CONCLUSIONS LV systolic function is normal with EF of 55-60% Grade 1 diastolic dysfunction Trace mitral regurgitation Mild tricuspid regurgitation. Mild pulmonary hypertension is noted No comparison studies are available Tim Gary MD (Electronically Signed) Final Date: 23 November 2020 17:24 S
--- NOTE | 2020-11-23 17:14 | CTR_ITS ---
PROCEDURE INFORMATION: Exam: CT Head Without Contrast Exam date and time: 11/23/2020 5:14 PM Age: 85 years old Clinical indication: Altered mental status/memory loss TECHNIQUE: Imaging protocol: Computed tomography of the head without contrast. Radiation optimization: All CT scans at this facility use at least one of these dose optimization techniques: automated exposure control; mA and/or kV adjustment per patient size (includes targeted exams where dose is matched to clinical indication); or iterative reconstruction. COMPARISON: No relevant prior studies available. RADIATION DOSE METRICS: Total DLP (mGy-cm): 1500.81 FINDINGS: Brain: There is diffuse cerebral atrophy and chronic microvascular white matter disease. There is no acute intracranial hemorrhage. Cerebral ventricles: There is mild ex vacuo dilation of the lateral ventricles. The basal cisterns are unremarkable. Paranasal sinuses: There is an air-fluid level in the left sphenoid sinus. Paranasal sinuses are otherwise clear. Mastoid air cells: The mastoid air cells are clear. Bones/joints: The calvarium is intact. Soft tissues: The visible extracranial soft tissues are unremarkable. CT/CT head wo con* [id number] IMPRESSION: No acute intracranial abnormality. Radiation Dose CTDIVOL = (mGy): DLP = 1500.81 (mGy-cm)
[2020-11-23 17:22] LABS: Add Urine Microscopic? NO; Charge for UA Resulting for Rev
[2020-11-23 17:54] LABS: Bilirubin Urine Neg (Negative); Blood Urine Neg (Negative); Glucose Urine UA Norm (Normal); Ketones Urine Negative (Negative); Leukocyte Esterase Urine Negative (Negative); Nitrate Urine Negative (Negative); Protein Urine Neg (Negative); Urine Appearance Clear (CLEAR); Urine Color Yellow (Yellow); Urobilinogen Urine Norm (Negative); pH Urine 5 (5-7)
[2020-11-23] MEDS: acetaminophen 500 mg Tablet 1000 MG PO (17:54)
--- NOTE | 2020-11-23 22:25 | PC.NURSE ---
Patient off floor to CT.
[2020-11-23] MEDS: sodium chloride 0.9% 1,000 ML 50 ML IV (22:33)
[2020-11-24] VITALS (13 sets, daily range): BP systolic 101–145; BP diastolic 55–74; PULSE 61–78; RESP 14–18; TEMP 36.4–37.2; O2SAT 91–98
[2020-11-24] MEDS: ipratropium-albuterol 3 mL Neb INHALATION ×3 (03:27→19:50)
[2020-11-24 03:33] LABS: Basophils % 0.4 %; Eosinophils # 0.1 10^3/uL (0.0-0.8); Eosinophils % 1.5 %; Hemoglobin 8.4 g/dL (11.5-15.3); Lymphocytes # 1.3 10^3/uL (0.8-4.8); Lymphocytes % 18.3 %; Mean Corpuscular HGB Conc 31.1 g/dL (30.0-36.0); Mean Corpuscular Hemoglobin 31.3 pg (28.0-34.0); Mean Corpuscular Volume 100.7 fL (81-99); Monocytes # 0.6 10^3/uL (0.2-0.9); Monocytes % 7.8 %; Neutrophils # 5.17 10^3/uL (1.8-7.7); Neutrophils % 71.6 %; Nucleated Red Blood Cells % 0 %; Platelet Count 156 10^3/cmm (130-400); Red Blood Count 2.68 10^6/uL (4.1-5.3); Red Cell Distribution Width 14.4 % (12.1-15.1); White Blood Count 7.2 10^3/uL (4.0-10.0)
[2020-11-24] MEDS: iron polysaccharide complex 150 mg Capsule PO ×2 (09:24→17:15)
[2020-11-24] MEDS: calcium carbonate 500 mg Chew Tablet 1000 MG PO ×2 (09:24→17:15)
[2020-11-24] MEDS: mirtazapine 15 mg Tablet PO (09:24)
[2020-11-24] MEDS: levothyroxine 88 mcg Tablet PO (09:24)
[2020-11-24] MEDS: oxyCODONE 5 mg IR Tab/Cap PO ×2 (09:25→14:15)
[2020-11-24] MEDS: amiodarone 200 mg Tablet PO (09:25)
[2020-11-24] MEDS: CELEcoxib 200 mg Capsule PO (09:25)
[2020-11-24] MEDS: gabapentin 100 mg Capsule 200 MG PO ×2 (09:25→20:41)
[2020-11-24] MEDS: sennosides-docusate Tablet 2 TAB PO ×2 (09:25→17:15)
[2020-11-24] MEDS: multivitamin therapeutic Tablet 1 TAB PO (09:25)
[2020-11-24] MEDS: cholecalciferol (vitamin D3) 1,000 unit Tablet 1000 UNIT PO (09:25)
[2020-11-24] MEDS: apixaban 5 mg Tablet PO ×2 (09:26→17:15)
[2020-11-24] MEDS: pantoprazole DR 40 mg Tablet PO (09:26)
[2020-11-24] MEDS: chlorhexidine gluconate 0.12% Btl 473 mL 30 ML MUCOUS MEM ×4 (09:26→20:41)
[2020-11-24] MEDS: acetaminophen 500 mg Tablet 1000 MG PO ×2 (11:20→18:50)
--- NOTE | 2020-11-24 11:30 | PC.NUTR ---
Nutrition assessment triggered due to MST=3 for decreased appetite and wt loss. Appears to have lost 11 lbs between 11/07/20 and 11/18/20 per chart. Attempted to interview pt, however multiple staff members working with pt at time of RD visit. Recommend to encourage po intakes of meals, fluids, and Ensure Plus supplement to optimize nutrition and promote weight maintenance. Recommend obtain current weight to clarify weight loss. See RD assessment for further details.
--- NOTE | 2020-11-24 12:54 | PC.NURSE ---
chair Pt sitting up in chair but after 30 mins wanted back in bed. I persuaded pt to sit up until after lunch.
--- NOTE | 2020-11-24 13:23 | P.PN_ITS ---
Subjective Subjective: Interval history: The patient is sitting up in her chair, but she does get fatigued easily. She is much more alert and oriented today. She is doing well. Vitals/I&O/Wt Last Vital Signs Temp 98.8 F 11/24/20 12:05 Pulse 66 11/24/20 12:05 Resp 16 11/24/20 12:05 BP 104/65 11/24/20 12:05 Pulse Ox 91 11/24/20 12:05 11/23/20 11/24/20 11/24/20 22:59 06:59 14:59 Intake Total 730 / 1000 360 / 1360 Output Total 320 / 320 Balance 410 / 680 360 / 1040 Physical Exam Const: COMMON NORMALS: no acute distress, average body habitus and alert GENERAL APPEARANCE: cooperative and comfortable ORIENTATION/CONSCIOUSNESS: Yes awake HENMT: COMMON NORMALS: normocephalic and atraumatic HEAD & SCALP: normocephalic and atraumatic Eye: GENERAL EYE: appearance normal, both eyes and all related structures Chest: COMMONS NORMALS: normal inspection of the chest Resp: COMMON NORMALS: normal respiratory effort EFFORT & INSPECTION: Yes able to speak in complete sentences and Yes symmetric chest movement Extremity: RIGHT LOWER EXTREMITY: Yes knee joint Right knee: Yes inspection (Dressing is intact. Postoperative bleeding has dried ), Yes palpation (Minimal tenderness), Yes ROM (Decreased) and Yes neurovascular exam (Intact distally) Neuro: SENSORIUM/ORIENTATION: Yes alert Psych: COMMON NORMALS: mental status grossly normal APPEARANCE: Yes grossly normal ATTITUDE: Yes calm and Yes engaged ATTENTION/CONCENTRATION: Yes attention grossly intact Skin: COMMON NORMALS: no rashes or lesions noted GENERAL SKIN EXAM: no rashes or lesions noted Urinary Catheter Management^: Pitts: Cath Placed During This Visit: yes, but has since been removed by the nurse Reason for Continuing Indwelling Catheter: Decision to DC Catheter Urinary Catheter Date of Insertion: 11/22/20 Urinary Catheter Time of Insertion: 13:35 Date Urinary Catheter Removed: 11/23/20 Time Urinary Catheter Discontinued: 07:00 Data : 11/24/20 17:08 11/23/20 02:06 A&P Assessment and plan (1) History of total right knee replacement: The patient is on her second postoperative day following right total knee arthroplasty. Postoperatively, she was admitted to the hospital for hospitalist care as well as aggressive physical therapy. The patient has a history of PE, and it was felt that if she would need to be observed for an extended period of time following the surgery. Additionally, since she was admitted, she became more confused. This is resolving. She is very fatigued when she gets up to the chair, and participation with therapy is limited secondary to this. She is improving and plans will be that she is discharged to [facility] for ongoing aggressive therapies. Status: Acute (2) Primary osteoarthritis of right knee: Status: Resolved Attestations Medical Necessity Statement*: Per hospitalist team Coding Level of Care Code Acute [employer] Sales Counter Manager for Zoeyg Fwkaur Diagnoses History of total right knee replacement Z96.651 Primary osteoarthritis of right knee M17.11
--- NOTE | 2020-11-24 15:40 | P.PN_ITS ---
Subjective Subjective: Interval history: No events overnight. Yesterday patient was mildly confused in the afternoon. Working appropriately with physical therapy. Sitting in chair today, feeling tired and fatigue and asking to go back to bed and 30 minutes. Has remained hemodynamically stable and afebrile. Hemoglobin 8.4 today. UA negative for any signs of reaction. CT head negative for any bleed or acute changes. Vitals/I&O/Wt Last Vital Signs Temp 98.8 F 11/24/20 12:05 Pulse 78 11/24/20 14:43 Resp 16 11/24/20 14:43 BP 104/65 11/24/20 12:05 Pulse Ox 98 11/24/20 14:43 11/24/20 11/24/20 11/24/20 06:59 14:59 22:59 Intake Total 360 / 1360 255 / 255 Balance 360 / 1040 255 / 255 Physical Exam Narrative: EXAM NARRATIVE: General: No acute distress, AO x3 HEENT: PERRLA, pupils bilaterally equal and reactive Chest:Bronchial breath sounds b/l ,decreased air entry, equal good air entry bilaterally, no more fine basal crackles CVS: S1-S2 irregularly irregular, no tachycardia, no murmurs, no gallops, no rubs Abdomen: Soft, nontender, no organomegaly, bowel sounds present, morbidly obese Neuro: AOx3, moving all limbs, no facial deformity Urinary Catheter Management^: Pitts: Cath Placed During This Visit: yes, but has since been removed by the nurse Reason for Continuing Indwelling Catheter: Decision to DC Catheter Urinary Catheter Date of Insertion: 11/22/20 Urinary Catheter Time of Insertion: 13:35 Date Urinary Catheter Removed: 11/23/20 Time Urinary Catheter Discontinued: 07:00 Data : 11/24/20 03:27 11/23/20 02:06 A&P Assessment and plan (1) Primary osteoarthritis of knees, bilateral: Status: Acute (2) History of pulmonary embolus (PE): Status: Acute (3) COPD (chronic obstructive pulmonary disease): Status: Acute (4) A-fib: Status: Acute Additional A&P Information Degenerative osteoarthritis of bilateral knee/post total knee arthroplasty: Postoperative day 2. Physical therapy as per orthopedics team. Eliquis 5 mg twice daily will help with DVT prophylaxis as well. Hemoglobin down to 8.4 today. Will recheck hemoglobin in afternoon. Most likely equilibrium after OR. Pain management as per Dr. Zuniga. Will avoid oversedation. Atrial fibrillation: Continue telemetry. Continue with amiodarone and Eliquis. Patient has remained rate controlled. Echocardiogram. History of pulmonary embolism: Oxygen supplementation keeping saturation over 92%. Continue with Eliquis 5 mg twice daily. COPD: No acute exacerbation. DuoNebs every 6 hour. Incentive spirometry. Continue other chronic medications. We will change treatment plan as per clinical picture. TSH, procalcitonin, iron panel within normal limits. AMINATA Pitts. Full code. Regular cardiac diet Eliquis 5 mg twice daily, foot pumps bilateral. Thank you for consultation. Attestations Medical Necessity Statement*: Patient requires further hospitalization for management of postoperative care for total knee replacement, anemia postoperatively and tiredness and fatigue which makes her at high risk of fall while safe discharge planning is sought. Time Spent in Patient Care: Greater than 35 minutes (>than 50% of time spent in counselling and/or direct pt care on unit) . Coding Level of Care Code Acute Director Clinical Pharmacology for Emi Browne Diagnoses Primary osteoarthritis of knees, bilateral M17.0 History of pulmonary embolus (PE) Z86.711 COPD (chronic obstructive pulmonary disease) J44.9 A-fib I48.91
[2020-11-24 17:43] LABS: Hematocrit 31.1 % (37.0-47.0); Hemoglobin 9.6 g/dL (11.5-15.3)
[2020-11-24] MEDS: sodium chloride 0.9% 1,000 ML 50 ML IV (20:41)
[2020-11-25] VITALS (12 sets, daily range): BP systolic 107–130; BP diastolic 61–68; PULSE 62–70; RESP 14–18; TEMP 36.4–36.7; O2SAT 85–98
--- NOTE | 2020-11-25 00:16 | PC.NURSE ---
CONFUSION UPON AWAKENING PT FOR VITAL SIGNS - PT CONFUSED STATES IM AT THE BAR REORIENTATION GIVEN - BED CHECK SET
[2020-11-25] MEDS: acetaminophen 500 mg Tablet 1000 MG PO ×2 (02:20→11:22)
[2020-11-25] MEDS: ipratropium-albuterol 3 mL Neb INHALATION ×3 (02:33→15:01)
[2020-11-25 02:48] LABS: Alanine Aminotransferase < 5 U/L (0-33); Albumin Level 2.8 g/dL (3.5-5.2); Alkaline Phosphatase 59 IU/L (35-105); Anion Gap 12.1 (5-19); Aspartate Amino Transferase 14 U/L (0-32); Basophils % 0.6 %; Blood Urea Nitrogen 22 mg/dL (8-23); Calcium 8.1 mg/dL (8.5-10.5); Carbon Dioxide 23 mmol/L (22-29); Chloride 107 mmol/L (98-107); Eosinophils # 0.2 10^3/uL (0.0-0.8); Eosinophils % 2.5 %; Globulin 2.8 g/dL (1.3-4.6); Glucose 97 mg/dL (65-115); Hemoglobin 8.2 g/dL (11.5-15.3); Lymphocytes # 1.6 10^3/uL (0.8-4.8); Lymphocytes % 24.1 %; Mean Corpuscular HGB Conc 30.4 g/dL (30.0-36.0); Mean Corpuscular Volume 105.5 fL (81-99); Mean Platelet Volume 10.2 fL (7.4-10.4); Monocytes # 0.5 10^3/uL (0.2-0.9); Neutrophils # 4.35 10^3/uL (1.8-7.7); Neutrophils % 64.2 %; Nucleated Red Blood Cells % 0 %; Osmolality Calculated 289 mOsm/kg (285-295); Platelet Count 159 10^3/cmm (130-400); Potassium 4.1 mmol/L (3.5-5.1); Red Blood Count 2.56 10^6/uL (4.1-5.3); Sodium 138 mmol/L (136-145); Total Bilirubin 0.5 mg/dL (0.15-1.2); Total Protein 5.6 g/dL (6.6-8.7); White Blood Count 6.8 10^3/uL (4.0-10.0)
--- NOTE | 2020-11-25 02:50 | PC.NURSE ---
PATIENT HAND OFF PT RESTING WITH EYES OPEN - QUESTIONS THIS NURSE TO WHERE HER CHILDREN ARE AND STATES I SWEAR THIS IS NOT MY ROOM - REORIENTATION GIVEN PER THIS NURSE - BED CHECK REMAINS ON - IV REMAINS PATENT - PATIENT HANDED OFF TO RU FALL
--- NOTE | 2020-11-25 06:59 | PC.SOCIAL ---
IMM Update Pg.2 of IMM updated and reviewed with patient, who verbalized understanding. Copy provided.
--- NOTE | 2020-11-25 09:02 | PC.RESP ---
PULMONARY REHAB INFORMATION SENT TO PATIENT.
[2020-11-25] MEDS: calcium carbonate 500 mg Chew Tablet 1000 MG PO (09:19)
[2020-11-25] MEDS: levothyroxine 88 mcg Tablet PO (09:19)
[2020-11-25] MEDS: amiodarone 200 mg Tablet PO (09:19)
[2020-11-25] MEDS: CELEcoxib 200 mg Capsule PO (09:20)
[2020-11-25] MEDS: apixaban 5 mg Tablet PO (09:20)
[2020-11-25] MEDS: cholecalciferol (vitamin D3) 1,000 unit Tablet 1000 UNIT PO (09:20)
[2020-11-25] MEDS: chlorhexidine gluconate 0.12% Btl 473 mL 30 ML MUCOUS MEM (09:20)
[2020-11-25] MEDS: sennosides-docusate Tablet 2 TAB PO (09:20)
[2020-11-25] MEDS: multivitamin therapeutic Tablet 1 TAB PO (09:20)
[2020-11-25] MEDS: pantoprazole DR 40 mg Tablet PO (09:20)
[2020-11-25] MEDS: iron polysaccharide complex 150 mg Capsule PO (09:20)
[2020-11-25] MEDS: gabapentin 100 mg Capsule 200 MG PO ×2 (09:20→14:25)
[2020-11-25] MEDS: mirtazapine 15 mg Tablet PO (09:20)
[2020-11-25] MEDS: oxyCODONE 5 mg IR Tab/Cap PO (09:25)
--- NOTE | 2020-11-25 12:10 | P.PN_ITS ---
Subjective Subjective: Interval history: Documents overnight. Patient continues to do well. No more confusion. Hemoglobin has remained stable. Working well with physical therapy. Still continues to feel really weak. Has remained hemodynamically stable and afebrile. Vitals/I&O/Wt Last Vital Signs Temp 97.8 F 11/25/20 08:10 Pulse 66 11/25/20 08:12 Resp 17 11/25/20 09:25 BP 113/68 11/25/20 08:10 Pulse Ox 91 11/25/20 08:10 11/24/20 11/25/20 11/25/20 22:59 06:59 14:59 Intake Total 1000 / 1255 Balance 1000 / 1255 Physical Exam Narrative: EXAM NARRATIVE: General: No acute distress, AO x3 HEENT: PERRLA, pupils bilaterally equal and reactive Chest:Bronchial breath sounds b/l ,decreased air entry, equal good air entry bilaterally, no more fine basal crackles CVS: S1-S2 irregularly irregular, no tachycardia, no murmurs, no gallops, no rubs Abdomen: Soft, nontender, no organomegaly, bowel sounds present, morbidly obese Neuro: AOx3, moving all limbs, no facial deformity Urinary Catheter Management^: Pitts: Cath Placed During This Visit: yes, but has since been removed by the nurse Reason for Continuing Indwelling Catheter: Decision to DC Catheter Urinary Catheter Date of Insertion: 11/22/20 Urinary Catheter Time of Insertion: 13:35 Date Urinary Catheter Removed: 11/23/20 Time Urinary Catheter Discontinued: 07:00 Data : 11/25/20 02:00 11/25/20 02:00 A&P Assessment and plan (1) Primary osteoarthritis of knees, bilateral: Status: Acute (2) History of pulmonary embolus (PE): Status: Acute (3) COPD (chronic obstructive pulmonary disease): Status: Acute (4) A-fib: Status: Acute Additional A&P Information Degenerative osteoarthritis of bilateral knee/post total knee arthroplasty: Postoperative day 2. Physical therapy as per orthopedics team. Eliquis 5 mg twice daily will help with DVT prophylaxis as well. Hemoglobin down to 8.4 today. Will recheck hemoglobin in afternoon. Most likely equilibrium after OR. Pain management as per Dr. Zuniga. Will avoid oversedation. Atrial fibrillation: Continue telemetry. Continue with amiodarone and Eliquis. Patient has remained rate controlled. Echocardiogram. History of pulmonary embolism: Oxygen supplementation keeping saturation over 92%. Continue with Eliquis 5 mg twice daily. COPD: No acute exacerbation. DuoNebs every 6 hour. Incentive spirometry. CKD: Baseline creatinine 1.1-1.3. Creatinine 1.2 today. Medical information done for nephrotoxic drugs. Continue other chronic medications. We will change treatment plan as per clinical picture. TSH, procalcitonin, iron panel within normal limits. AMINATA Pitts. Full code. Regular cardiac diet Eliquis 5 mg twice daily, foot pumps bilateral. Thank you for consultation. Patient stable to be discharged from medical point of view back to group home for further rehabitation. She is to continue taking her Eliquis and amiodarone as before. Attestations Medical Necessity Statement*: As per primary team. Time Spent in Patient Care: Greater than 35 minutes (>than 50% of time spent in counselling and/or direct pt care on unit) . Coding Level of Care Code Acute Service Delivery Analyst for Emi Browne Diagnoses Primary osteoarthritis of knees, bilateral M17.0 History of pulmonary embolus (PE) Z86.711 COPD (chronic obstructive pulmonary disease) J44.9 A-fib I48.91
--- NOTE | 2020-11-25 12:36 | PC.CHAP ---
Pastoral Care Encounter/Spiritual Assessment Type of Contact [] Declined double cut off saw operator visit [] Patient/Family/Request visit [] Outpatient visit [xx] Follow-up visit [] Physician referral [] Code/Alert [xx] Routine visit [] Staff referral [] Actively dying [] Patient sleeping [] Family support [] [] Out of room [] Palliative care [] [] Receiving care in room [] Pre-surgical visit [] Trauma [xx] Long length of stay [] ICU visit [] Other: Relational/Emotional Strength [xx] Patient feels connected with others/family/visitors/staff [] Distress [] Loneliness/isolation [] Abandonment Spirituality of Patient [xx] Person of Huma [xx] Attends Denominational of their Huma [xx] Believes in Prayer [xx] Reads Bible or Faith materials [] There are Spiritual issues to be addressed Wine Consultant Interventions [xx] Prayer [xx] Active listening [xx] Non-anxious presence [] Spiritual/emotional support [] Crisis/trauma care [] Spiritual counseling [] Bereavement support [] Provided bereavement packet [] Provided Bible/devotional materials [] Provided toy/stuffed animal, coloring book to patient or family member [] Provided Communion [] Anointing/Mobile [] Salvation [xx] Completed spiritual assessment [] Other: Impact on Illness or Injury [] Angry [] Fearful [] Anxious [] Often cries [] Exhaustion [] Unable to work [] Unable to attend taoism [] Unable to walk/stand [] Unable to read [] Unable to drive [] Unable to eat/drink [] Unable to sleep [] Unable to be with family [] Patient intubated [] Other: Summary Pollotient stated knee replacement surgery was not as painful as she expected but it still hurts. She stated also that she has been impatient with physical therapist but understands they are doing therapy in her behalf. She will be going to a nursing hoe for more therapy/rehab. She stated she plans on having other knee replaced also in future. Time spent with patient 7 minutes
--- NOTE | 2020-11-25 17:56 | P.DS_ITS ---
Discharge Providers Date of Admission: 11/22/20 16:45 Date of Discharge: November 25, 2020 Attending Provider at Admission: Madonna Zuniga MD Attending Provider at Discharge: Madonna Zuniga MD Primary Care Provider: Milagros Pimentel MD, [facility] Diagnoses at Discharge Discharge Diagnosis (1) Primary osteoarthritis of knees, bilateral: Status: Acute (2) History of pulmonary embolus (PE): Status: Acute (3) COPD (chronic obstructive pulmonary disease): Status: Acute (4) A-fib: Status: Acute Reason for Visit Reason for Visit: RIGHT TOTAL KNEE ARTHROPLASTY Hospital Course Hospital Course This 85-year-old woman underwent right total knee arthroplasty. She had significant medical issues including previous history of PE and she had issues with memory. She is a full-time resident at [facility]. She wished to proceed with total knee arthroplasty she was having significant difficulty with activities of daily living. On November 22, she underwent primary right total knee arthroplasty. She tolerated this well and was admitted to the floor postoperatively. On the first postoperative day, the patient had mental status changes and appeared confused. These continue to resolve over the time of her stay until she was back to her baseline status. She was followed by the medical service as well as by orthopedics. She underwent physical therapy as tolerated. She did have some weakness and fatigue with attempts at therapy. The patient will require aggressive in-house physical therapy to fully recover from her knee. She will be returned to [facility] where she resides, but she will return so under a skilled level so that she may receive physical therapy. The patient is discharged home with complications are none. Physical Exam Const: COMMON NORMALS: no acute distress, average body habitus and alert GENERAL APPEARANCE: cooperative and comfortable ORIENTATION/CONSCIOUSNESS: Yes awake HENMT: COMMON NORMALS: normocephalic and atraumatic HEAD & SCALP: normocephalic and atraumatic Eye: GENERAL EYE: appearance normal, both eyes and all related structures Chest: COMMONS NORMALS: normal inspection of the chest Resp: COMMON NORMALS: normal respiratory effort EFFORT & INSPECTION: Yes able to speak in complete sentences and Yes symmetric chest movement Neuro: SENSORIUM/ORIENTATION: Yes alert Psych: COMMON NORMALS: mental status grossly normal APPEARANCE: Yes grossly normal ATTITUDE: Yes calm and Yes engaged ATTENTION/CONCENTRATION: Yes attention grossly intact Skin: COMMON NORMALS: no rashes or lesions noted GENERAL SKIN EXAM: no rashes or lesions noted Urinary Catheter Management^: [place]: Cath Placed During This Visit: yes, but has since been removed by the nurse Reason for Continuing Indwelling Catheter: Decision to DC Catheter Urinary Catheter Date of Insertion: 11/22/20 Urinary Catheter Time of Insertion: 13:35 Date Urinary Catheter Removed: 11/23/20 Time Urinary Catheter Discontinued: 07:00 Discharge Data Data Completed and Pending: Completed Studies During Hospitalization Category Date Time Status CT head wo con* 7 0450 Routine Cat Scan 11/23/20 17:14 Completed XR knee RT 3V* 73 562 Urgent Exams 11/22/20 17:12 Completed CV echo complete* [id number] Routine Ultrasound 11/23/20 17:09 Completed Labs from last 24 hours 11/25/20 11/25/20 02:00 02:00 WBC 6.8 RBC 2.56 L Hgb 8.2 L Hct 27.0 L MCV 105.5 H MCH 32.0 MCHC 30.4 RDW 15.0 Plt Count 159 MPV 10.2 Neut % (Auto) 64.2 Lymph % (Auto) 24.1 [place] % (Auto) 8.0 Eos % (Auto) 2.5 Baso % (Auto) 0.6 Neut # (Auto) 4.35 Lymph # (Auto) 1.6 [place] # (Auto) 0.5 Eos # (Auto) 0.2 Baso # (Auto) 0.0 Nucleated RBC % (a uto) 0 Nucleated RBCs # 0.0 Sodium 138 Potassium 4.1 Chloride 107 Carbon Dioxide 23 Anion Gap 12.1 BUN 22 Creatinine 1.2 H GFR Calculation Not Reportable Glucose 97 Calculated Osmolal ity 289 Calcium 8.1 L Total Bilirubin 0.5 AST 14 ALT < 5 Alkaline Phosphata se 59 Total Protein 5.6 L Albumin 2.8 L Globulin 2.8 Vitals: Last Vital Signs Temp 97.5 F L 11/25/20 12:13 Pulse 63 11/25/20 17:12 Resp 18 11/25/20 17:12 BP 130/68 11/25/20 12:13 Pulse Ox 94 11/25/20 17:12 Discharge Plan Discharge Patient Disposition: Xfer SNF Condition: Stable Prescriptions: New acetaminophen 500 mg Tablet 1,000 mg PO Q8H 15 Days Qty: 0 RF: 0 celecoxib 200 mg Capsule 200 mg PO DAILY Qty: 30 RF: 0 oxycodone 5 mg Tablet 5 mg PO Q4H PRN (Reason: Moderate Pain) Qty: 30 RF: 0 Continued albuterol sulfate 2.5 mg/0.5 mL solution for nebulization 5 mg inhalation Q6H RF: 0 amiodarone 200 mg tablet 200 mg PO DAILY RF: 0 Eliquis 5 mg tablet 5 mg PO BID RF: 0 omeprazole 20 mg capsule,delayed release(DR/EC) 20 mg PO DAILY RF: 0 albuterol sulfate [Ventolin HFA] 90 mcg/actuation HFA aerosol inhaler 1 inh inhalation QID RF: 0 polyethylene glycol 3350 17 gram powder in packet 17 g PO DAILY RF: 0 levothyroxine 88 mcg capsule 88 mcg PO DAILY RF: 0 gabapentin 300 mg capsule 200 mg PO TID RF: 0 tramadol 50 mg tablet 50 mg PO Q6H PRN (Reason: Pain) RF: 0 mirtazapine 15 mg tablet 15 mg PO DAILY RF: 0 Discharge Orders: Discharge Order (Routine); Ordered 11/25/20 Ordered By: Madonna Zuniga Referrals: Madonna Zuniga MD [Physician] - 12/07/20 8:30 am Discharge Diet: Advance as tolerated and Usual diet Discharge Activity: Increase activity as tolerated, Limit activity as instructed, Use walker/crutches as instructed and As per PT/OT instructions Activity Restrictions/Additional Instructions: Weight-bear as tolerated. Ice and elevation to right lower extremity. Physical therapy for range of motion, gait training, and strengthening. Discharge Attestations Time Spent in Discharge Care*: greater than 30 min Specific Discharge Activities: educating patient, discussing with pcp/other providers, discussing with showcase maker/social workers/dc planners and documenting/other paperwork Quality Metrics Clinical Quality Measures During this hospital stay, did patient experience: None Coding Level of Care Code Acute Chg FW DC note Exam Detailed Diagnoses Primary osteoarthritis of knees, bilateral M17.0 History of pulmonary embolus (PE) Z86.711 COPD (chronic obstructive pulmonary disease) J44.9 A-fib I48.91
== END 2020-11-25 16:30 | disposition skilled nursing facility (03) | DRG 470 ==
LOC: MEDSURG 16:46
PROVIDERS: Student in an Organized Health Care Education/Training Program; Admitting Provider Specialist; PCP Family Medicine; Visit Provider Specialist
PROC: 0SRC0JA Replacement of Right Knee Joint with Synthetic Substitute, Uncemented, Open Approach (ICD-10-PCS; CPT 27447; principal; 2020-11-22 07:00)
DX: M17.0 Bilateral primary osteoarthritis of knee (principal); D64.9 Anemia, unspecified; J44.9 Chronic obstructive pulmonary disease, unspecified; I48.91 Unspecified atrial fibrillation; R41.82 Altered mental status, unspecified; E03.9 Hypothyroidism, unspecified; R53.83 Other fatigue; N18.9 Chronic kidney disease, unspecified; Z86.711 Personal history of pulmonary embolism; Z79.01 Long term (current) use of anticoagulants; Z96.651 Presence of right artificial knee joint; Z87.891 Personal history of nicotine dependence; Z91.81 History of falling
CPT/HCPCS: 36415; 64447; 70450; 73562; 76942; 80053; 81003; 83540; 83550; 84145; 84443; 85014; 85018; 85025; 93005; 93306; 94640; 97110; 97116; 97161; 97165; 97530; C1776; C9290; J0690; J2250; J2370; J2704; J2795; J3010; J3370; J3490; J7030; J7050; J7611

== ENCOUNTER → 2020-12-15 12:16 | Outpatient (BNVA) | payer OTHER, MEDICARE, MEDICAID, SELFPAY | PROVIDERS: PCP Family Medicine; Visit Provider Specialist | DX: Z47.1 Aftercare following joint replacement surgery (principal); Z96.651 Presence of right artificial knee joint | CPT/HCPCS: 73560; 73565 ==

== ENCOUNTER → 2021-02-09 10:50 | Outpatient (BNVA) | payer MEDICARE, MEDICAID, SELFPAY | PROVIDERS: PCP Family Medicine; Visit Provider Specialist | DX: Z96.651 Presence of right artificial knee joint (principal) | CPT/HCPCS: 73560; 73565 ==

== ENCOUNTER → 2021-03-16 13:15 | Outpatient (BNVA) | payer MEDICARE, MEDICAID, SELFPAY | PROVIDERS: PCP Family Medicine; Visit Provider Specialist | DX: Z20.822 Contact with and (suspected) exposure to COVID-19 (principal); M17.12 Unilateral primary osteoarthritis, left knee | CPT/HCPCS: 87635 ==

== ENCOUNTER 2021-03-21 18:26 | Inpatient (IN) | payer MEDICARE, MEDICAID, SELFPAY ==
[2021-03-16 10:13] VITALS: BMI 27.5
--- NOTE | 2021-03-16 10:24 | ECG_ITS ---
[facility] Test Date: 2021-03-16 Pat Name: April Hampton Department: Room: Gender: Female Network Security Officer: : 1935 Requested By: Celio Delvalle Order Number: [id number] Reading MD: REGIS NEWTON Measurements Intervals [place] Rate: 57 P: -17 SD: 225 QRS: -19 QRSD: 89 T: 62 QT: 427 QTc: 419 Interpretive Statements SINUS BRADYCARDIA WITH FIRST DEGREE AV BLOCK MARKED ST ELEVATION, CONSIDER SEPTAL INJURY [MARKED ST ELEVATION W/O NORMALLY INFLECTED T WAVE IN V1/V2] Interventricular conduction delay Compared to ECG 11/18/2020 14:14:37 There is no change Electronically Signed On 03-16-2021 13:57:32 CDT by REGIS NEWTON [email or web address]
[2021-03-16 11:38] LABS: Alanine Aminotransferase 7 U/L (0-33); Albumin Level 3.8 g/dL (3.5-5.2); Alkaline Phosphatase 66 IU/L (35-105); Anion Gap 10.6 (5-19); Aspartate Amino Transferase 18 U/L (0-32); Blood Urea Nitrogen 44 mg/dL (8-23); Calcium 9.3 mg/dL (8.5-10.5); Carbon Dioxide 28 mmol/L (22-29); Chloride 106 mmol/L (98-107); Globulin 3.1 g/dL (1.3-4.6); Glucose 91 mg/dL (65-115); Osmolality Calculated 301 mOsm/kg (285-295); Potassium 4.6 mmol/L (3.5-5.1); Sodium 140 mmol/L (136-145); Total Bilirubin 0.3 mg/dL (0.15-1.2); Total Protein 6.9 g/dL (6.6-8.7)
--- NOTE | 2021-03-16 11:45 | ANES.PREANE2 ---
Pre-Anesthetic Assessment Pre-Anesthetic Assessment: Height/Weight: Height 1.52 m Weight 63.957 kg Preop Diagnosis: Primary osteoarthritis left knee Proposed Procedure: Operation Date: 03/21/21 14:30 Proposed Procedures p Total Knee Arthroplasty 01142 M17.12 M17.10(Left) - Madonna Zuniga MD Was Beta Ricardo taken within 24 hours: N/A Was Clonidine taken within 24 hours: N/A Social: Social History: No alcohol and No tobacco Exam: Pre-Anes Outpt Exam: alert, oriented x 3, clear to auscultation bilaterally and regular rate & rhythm Airway: Submandibular: WNL Cervical ROM: WNL MP: 2 Dentition: Chipped Pulmonary: Pulmonary: COPD CV/HEM: CV/HEM: Afib and Arrythmia Comments: h/o PE, brugada syn GI: GI: GERD Metabolic: Metabolic: Thyroid Musc/skel: Musc/skel: OA/DJD Anesthetic Plan: ASA status: 3 Anesthesia: Regional (specify below) (SAB with addcutor blk (did well with spinal on right knee)) Risk of > 500 ml blood loss (7ml/kg in children): No PFSH Anesthesia PFSH: Medical History A-fib COPD (chronic obstructive pulmonary disease) History of pulmonary embolus (PE) Hypothyroidism Shingles Family History Other CAD (coronary artery disease) Diabetes Social History Smoking and tobacco status: never smoked Alcohol intake: never Data Anesthesia CBC & Chem 7: 03/16/21 10:50 Other Labs: Laboratory Results - last 48 hr 03/16/21 10:50 Sodium 140 Potassium 4.6 Chloride 106 Carbon Dioxide 28 Anion Gap 10.6 BUN 44 H Creatinine 1.6 H GFR Calculation Not Reportable Glucose 91 Calculated Osmolality 301 H Calcium 9.3 Total Bilirubin 0.3 AST 18 ALT 7 Alkaline Phosphatase 66 Total Protein 6.9 Albumin 3.8 Globulin 3.1 Cardiac Studies: No Data to Display
[2021-03-16 11:47] LABS: Add Urine Microscopic? YES; Bilirubin Urine 1+ (Negative); Blood Urine 2+ (Negative); Glucose Urine UA Norm (Normal); Ketones Urine Negative (Negative); Leukocyte Esterase Urine Negative (Negative); Nitrate Urine Negative (Negative); Protein Urine Neg (Negative); Urine Appearance Clear (CLEAR); Urine Color Yellow (Yellow); Urobilinogen Urine Norm (Negative); pH Urine 5 (5-7)
[2021-03-16 11:48] LABS: Add Urine Culture? No; Bacteria Urine 1+ /hpf
[2021-03-21] VITALS (19 sets, daily range): BP systolic 102–166; BP diastolic 46–83; PULSE 52–96; RESP 16–18; TEMP 36.1–36.9; O2SAT 90–96
[2021-03-21] MEDS: sodium chloride 0.9% 1,000 ML 30 ML IV (13:10)
[2021-03-21] MEDS: acetaminophen 1,000 MG/100 ML PIGGYBACK 400 MG IV ×2 (13:15→20:52)
[2021-03-21 13:19] LABS: Hematocrit 36.5 % (37.0-47.0); Hemoglobin 11.5 g/dL (11.5-15.3); Mean Corpuscular HGB Conc 31.5 g/dL (30.0-36.0); Mean Corpuscular Volume 101.7 fl (81-99); Red Blood Count 3.59 10^6/uL (4.1-5.3); White Blood Count 6.8 10^3/uL (4.0-10.0)
[2021-03-21 13:20] LABS: Basophils # 0.1 10^3/uL (0.0-0.1); Basophils % 1.2 %; Eosinophils # 0.2 10^3/uL (0.0-0.8); Eosinophils % 2.8 %; Lymphocytes # 1.7 10^3/uL (0.8-4.8); Lymphocytes % 25.4 %; Mean Platelet Volume 10.2 fL (7.4-10.4); Monocytes # 0.5 10^3/uL (0.2-0.9); Monocytes % 6.7 %; Neutrophils # 4.28 10^3/uL (1.8-7.7); Neutrophils % 63.3 %; Nucleated Red Blood Cells % 0 %; Platelet Count 250 10^3/cmm (130-400); Red Cell Distribution Width 13.4 % (12.1-15.1)
[2021-03-21] MEDS: CELEcoxib 200 mg Capsule 400 MG PO (14:34)
--- NOTE | 2021-03-21 15:26 | W.PM.OPSUD ---
Surgery/Procedure H&P Update DATE OF PROCEDURE: March 21, 2021 DATE H&P PERFORMED: 03/06/21 H&P UPDATE INFORMATION: I have reviewed H&P completed within last 30 days, I have examined patient prior to procedure, No changes to prior documentation and H&P is in [facility] EMR on date indicated PREOP DIAGNOSIS: Primary osteoarthritis left knee PLANNED PROCEDURE: Operation Date: 03/21/21 14:30 Proposed Procedures p Total Knee Arthroplasty 06451 M17.12 M17.10(Left) - Madonna Zuniga MD Related Problem List Diagnoses (1) Primary osteoarthritis of left knee:
--- NOTE | 2021-03-21 15:52 | P.ANESUD_ITS ---
Pre-Anesthetic Update Pre-Anesthetic Assessment: Date of Surgery/Procedure: 03/21/21 Preop Codi gnosis: Primary osteoarthritis left knee Proposed Procedure: Operation Date: 03/21/21 14:30 Proposed Procedures p Total Knee Arthroplasty 59850 M17.12 M17.10(Left) - Madonna Zuniga MD Any changes to Pre-Anesthetic Assessment?: No Last Intake: Intake Last Liquid Date 03/20/21 Last Liquid Time 18:00 Last Solid Date 03/20/21 Last Solid Time 17:00 Labs Last 48hrs: Laboratory Results - last 48 hr 03/21/21 13:10 WBC 6.8 RBC 3.59 L Hgb 11.5 Hct 36.5 L MCV 101.7 H MCH 32.0 MCHC 31.5 RDW 13.4 Plt Count 250 MPV 10.2 Neut % (Auto) 63.3 Lymph % (Auto) 25.4 [place] % (Auto) 6.7 Eos % (Auto) 2.8 Baso % (Auto) 1.2 Neut # (Auto) 4.28 Lymph # (Auto) 1.7 [place] # (Auto) 0.5 Eos # (Auto) 0.2 Baso # (Auto) 0.1 Nucleated RBC % (a uto) 0 Nucleated RBCs # 0.0 Vitals: Temperature 97 F L 03/21/21 13:32 Temperature Source Temporal Artery S can 03/21/21 13:32 Pulse Rate 63 03/21/21 13:32 Pulse Rhythm 03/21/21 13:22 Pulse Strength 3+ Normal 03/21/21 13:22 Respiratory Rate 18 03/21/21 13:32 Blood Pressure 164/65 03/21/21 13:32 Blood Pressure Twila n 98 03/21/21 13:32 Pulse Oximetry 94 03/21/21 13:32 Oxygen Delivery Me thod 03/21/21 13:32 Exam: Pre-Anes Outpt Exam: alert, oriented x 3, clear to auscultation bilaterally and regular rate & rhythm Cardiac Studies: No Data to Display
[2021-03-21] MEDS: ceFAZolin 1,000 mg SDV 2000 MG (16:01)
--- NOTE | 2021-03-21 17:04 | P.CONIM_ITS ---
Providers/Reason For Consult Attending Physician: Madonna Zuniga MD Primary Care Provider: Milagros Pimentel MD, [facility] History of Present Illness History of Present Illness April Hampton is a 86 year old female with past medical history of atrial fibrillation, on Eliquis, pulmonary embolism, hypothyroidism, total knee replacement October 2020, presented to the hospital today for her second knee replacement. Patient has a history of severe degenerative arthritis will be going for left total knee arthroplasty today. Internal medicine was consulted for management of her comorbid conditions and postop care. Patient seen postop. Review of Systems General: Reports: 10 or more systems reviewed and unremarkable except in HPI and below Meds/Allergies Home Medications and Allergies Home Medications Medication Instructions Recorded Confirmed Last Taken Type albuterol sulfate 2.5 mg/0.5 mL 5 mg INHALATION Q6H 07/04/20 03/21/21 03/21/21 History solution for nebulization albuterol sulfate 90 mcg/actuation 1 inh INHALATION QID 07/04/20 03/21/21 03/21/21 09:00 History aerosol inhaler amiodarone 200 mg tablet 200 mg PO DAILY 07/04/20 03/21/21 03/21/21 09:00 History apixaban 5 mg tablet 5 mg PO BID 07/04/20 03/21/21 03/17/21 History gabapentin 300 mg capsule 200 mg PO TID cap 07/04/20 03/21/21 03/21/21 09:00 History levothyroxine 88 mcg capsule 88 mcg PO DAILY 07/04/20 03/21/21 03/21/21 05:00 History mirtazapine 15 mg tablet 15 mg PO DAILY 07/04/20 03/21/21 03/20/21 History omeprazole 20 mg capsule,delayed 20 mg PO DAILY 07/04/20 03/21/21 03/21/21 09:00 History release tramadol 50 mg tablet 50 mg PO Q6H PRN 07/04/20 03/16/21 Unknown History celecoxib 200 mg PO DAILY #30 cap 11/25/20 03/21/21 03/21/21 09:00 Rx Allergies Allergy/AdvReac Type Severity Reaction Status Date / Time No Known Allergies Allergy Verified 03/21/21 12:46 Current Medications Current Medications Generic Name Dose Route Start Last Admin Trade Name Freq PRN Reason Stop Dose Admin Sodium Chloride 1,000 mls @ 30 mls/hr 03/21/21 12:45 03/21/21 13:10 Sodium Chloride 0.9% IV 03/22/21 12:44 30 mls/hr .Q24H ANGELINE Administration PFSH Acute PFSH: Medical History A-fib COPD (chronic obstructive pulmonary disease) History of pulmonary embolus (PE) Hypothyroidism Shingles Family History Other CAD (coronary artery disease) Diabetes Social History Smoking and tobacco status: never smoked Alcohol intake: never Vitals/I&O/Wt Last Vital Signs Temp 97 F L 03/21/21 13:32 Pulse 63 03/21/21 13:32 Resp 18 03/21/21 13:32 BP 164/65 03/21/21 13:32 Pulse Ox 94 03/21/21 13:32 03/21/21 03/21/21 03/21/21 06:59 14:59 22:59 Intake Total 100 / 100 Balance 100 / 100 Physical Exam Narrative: EXAM NARRATIVE: General: Alert oriented x3, patient seen HEENT: Normocephalic, atraumatic, EOMI, breathing Cardio: Regular rate rhythm, normal S1-S2, no murmurs rubs gallops, JVD Respiratory: Good bilateral air entry, no wheezes no rhonchi appreciated GI: Abdomen soft, nontender, nondistended, bowel sounds + Behavior: Appropriate and cooperative Extremities: Pulses 2+, no edema, no cyanosis A&P Additional A&P Information Degenerative osteoarthritis of bilateral knee/post total knee arthroplasty: Postoperative day 0. Anticoagulation, physical therapy, perioperative antibiotics, pain management as per Dr. Zuniga. Check CBC, CMP, procalcitonin. Atrial fibrillation: Place patient on cardiac telemetry. Continue with amiodarone as rate control medication. Continue with Eliquis 5 mg twice daily once okay with Dr. Zuniga. History of pulmonary embolism: Oxygen supplementation keeping saturation over 92%. Continue with Eliquis once okay with Dr. Zuniga. Continue DuoNeb, amiodarone, Eliquis, levothyroxine. We will continue mirtazapine, omeprazole. We will hold tramadol. We will use IV pain medication for today as patient is postop. Will tailor treatment as per clinical status of patient. Full code. Regular cardiac diet once okay with Dr. Zuniga. Anticoagulation as per orthopedics, foot pumps bilateral. 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
--- NOTE | 2021-03-21 17:10 | SUR.OPER ---
1702 daughter nohelia given update by floresita
[2021-03-21] MEDS: vancomycin 1,000 MG SDV 1000 MG (17:41)
--- NOTE | 2021-03-21 18:22 | XR_ITS ---
WS: [id number] Exam: XR knee LT 1-2V [id number] Date/Time of Exam: 03/21/2021 6:27 PM Reason For Exam: Status post left total knee Comparison 02/09/2021. A total knee prosthesis has been placed and appears to be in excellent position. Postoperative change s in the adjacent soft tissues. Anterior surgical skin clips. XR/XR knee LT 1-2V [id number] IMPRESSION: 1. Total knee replacement in excellent position.
--- NOTE | 2021-03-21 18:23 | PM.OP ---
Operative Report Date of procedure: March 21, 2021 Pre-op Diagnosis: Primary osteoarthritis left knee Post-op diagnosis: same Post-op Findings: Severe degenerative osteoarthritis left knee Procedure Done: Left total knee arthroplasty Implants: The [place] total knee system with a size 3 triathlon beaded posterior stabilized femur left, a triathlon titanium tibial component size 3 beaded, a triathlon X3 posterior stabilized tibial bearing insert size 3 X 11 mm and a beaded triathlon titanium asymmetric patella size 35 x 10 mm Specimens removed/disposition: Bone, disposed of Pathology: none sent Surgeon: Madonna Zuniga 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 No flexion contracture. Condition: stable Disposition: PACU (Then to floor for postoperative rehabilitation, monitoring with history of PE, and medical management) Brief History: This 86-year-old woman is admitted to the hospital postoperatively following left total knee arthroplasty. She had significant symptoms from her degenerative osteoarthritis of the knee which caused her to have significant issues with activities of daily living. She has a history of significant PE which caused her an extended hospitalization. Additionally, when she had her right total knee in October of this year, she became very confused on the second day following surgery. She had a negative CT scan and was evaluated by the medical service. As treatment for her PE, she is chronically on Eliquis which has been discontinued for the surgical procedure. She will require inpatient monitoring and services to assure that she does not have a PE following this procedure. She will be placed on Eliquis postoperatively for DVT prophylaxis. Obviously, she will need to take this for a couple of days prior to being discharged back to the senior care facility Procedure: The patient was brought to the operating theater, and after undergoing adequate spinal anesthesia with MAC, ASA 3, the left lower extremity was prepped with Dura-Prep and draped in usual fashion following placement of a tourniquet high on the leg. The leg was then draped free. Following prepping and draping, the leg was exsanguinated, and the tourniquet was elevated to 300 mm Hg for a total tourniquet time of 103 minutes. Prior to elevation of the tourniquet, but following exposure of the site of surgery, a surgical pause was performed. At the time of the surgical pause, we confirmed the site and side of surgery. Additionally, we confirmed the appropriate and timely administration of preoperative antibiotics, Ancef 2 g. and Transexemic acid 1 g. The availability of equipment was confirmed, and the patient's identity was verbalized as well. Following the surgical pause, an incision was made centering over the patella continuing proximally and distally as necessary to allow access to the knee joint. Dissection continued through skin and soft tissues using a scalpel. Hemostasis was obtained using electrocautery. The skin incision was followed by a median parapatellar arthrotomy. The leg was extended and the patella was everted. Following this, the leg was returned to flexed position. The distal femur was exposed and a drill hole was made in this for placement of the distal femoral jig. The distal femoral jig was set at 5? of valgus. The distal femoral cutting block was then placed in appropriate position, and an jose wing was used to confirm an appropriate amount of distal femur would be resected. The distal femoral resection was accomplished with 8 mm of bone being resected distally. After the distal femoral resection had been accomplished, the femur was measured and it measured a size 3. Medial lateral dimension also measured a size 3. A size 3 femoral cutting block was placed in position, and we were then able to accomplish the anterior, posterior and chamfer cuts. This jig was then removed and the notch guide was placed in position. With the notch guide in appropriate position, the notch was excised including resection of the anterior and posterior cruciate ligaments. This notch was to allow for the posterior stabilized femoral component. At this point, the femur was prepared and attention was directed to the proximal tibia. The posterior knee retractor was placed along with medial and lateral retractors. Further resection of the menisci was accomplished as we had better visualization. A complete meniscectomy was performed both medially and laterally with care being taken to protect the popliteus. Retractors were then placed so that the proximal tibia was well visualized. A drill hole was then made in the tibia for placement of the intramedullary guide. This guide was placed so that approximately 2 mm of bone would be resected from the deficient medial tibial plateau. The intramedullary guide was utilized supplemented with an extramedullary guide to assure appropriate alignment for the proximal tibial resection. The proximal tibial jig was then evaluated, pinned in position, and the proximal tibial resection was accomplished without difficulty. The jig was removed, and the proximal tibia was measured. It measured a size 3. We then attempted a trial reduction with a size 3 by 9 mm insert. Subsequently, we increased to a 3 x 11 mm insert which gave better varus valgus stability and full extension. The femoral component was placed in position for the trial reduction, and the knee was placed through range of motion. With this, there was excellent stability with excellent varus-valgus alignment with appropriate patellar tracking. Extension was noted to be full as well. This was felt to be the appropriate size insert. There was full extension and flexion without lift off and the rotation of the tibia was marked. Alignment was checked from the hip to the ankle, and this was noted to be appropriate as well. Attention was then directed to the patella. The patella was measured with a caliper. We resected sufficient patella to leave approximately 14 mm of patella remaining. Measurements of the patella then indicated that a size asymmetric 35 mm x 10 mm was the appropriate patellar size. We then placed the jig to drill for the 3 pegs of the press-fit patella, and these drill holes were made without incident. A trial patella was then placed, and the knee was placed through range of motion. The patella was noted to track nicely without evidence of subluxation. The femur was prepared for a press-fit femur by drilling 2 holes for the femoral pegs. All trial components were subsequently removed. The tibial tray was then pinned into position, and we broached the tibia for the stem of the tibial component. Subsequently, 4 drill holes were made for placement of the press-fit tibia. This was accomplished without difficulty. Care was taken to assure appropriate rotation of the tibia as well as appropriate position on the proximal tibia. The tibial tray was completely seated on the proximal tibia. Following broaching, the tibial guide was removed, and all surfaces were copiously irrigated. The surfaces were then dried and a bone plug was placed into the distal femur. Exparel was also injected at this point. The Tritanium tibia was impacted into position. The beaded femur was then impacted into position in a cementless fashion. The tibial insert was placed. The patella was pressed into position with a patellar clamp. The knee was irrigated with 20 mL of Betadine and 500 mL of normal saline, and this was allowed to remain in the knee for 3-4 minutes. The knee was then copiously irrigated and suctioned dry. Attention was then directed to closure. Closure was accomplished with 0 Vicryl in the fascial tissues. Following this, a 2-0 Monocryl was used in the subcutaneous tissues, and the skin was closed with skin seng. A sterile dressing was then placed consisting of dermabond Prineo, OpSite, sterile soft roll, and an Adán wrap. The patient was returned the Recovery Room in a satisfactory condition. X-rays were obtained there. The patient will be discharged to the floor for postoperative rehabilitation and pain management. Associated Problem List Diagnoses (1) Primary osteoarthritis of left knee:
--- NOTE | 2021-03-21 20:43 | ANE.PACU2 ---
Inpatient post-anesthesia follow up: Airway intact: Yes Vital signs: Temperature 98.2 F Pulse Rate 96 Respiratory Rate 17 Blood Pressure 159/82 Pulse Oximetry 94 Oxygen Delivery Me thod Room Air Oxygen Flow Rate Fraction of Inspir ed Oxygen Hydration adequate: Yes Nausea and vomiting: No Pain level: 1 Mental status: Baseline
[2021-03-21] MEDS: gabapentin 100 mg Capsule 200 MG PO (20:52)
[2021-03-21] MEDS: mirtazapine 15 mg Tablet PO (20:53)
[2021-03-21] MEDS: oxyCODONE 5 mg IR Tab/Cap PO (20:59)
[2021-03-21] MEDS: chlorhexidine gluconate 0.12% Btl 473 mL 30 ML MUCOUS MEM (20:59)
--- NOTE | 2021-03-21 21:54 | P.CONIM_ITS ---
Providers/Reason For Consult Consulting Physician/Specialty*: Frase, Hospitalist Reason for Consult*: Medical comorbidities following total knee, history PE Requesting Physician: Nadia Attending Physician: Madonna Zuniga MD Primary Care Provider: Milagros Pimentel MD, [facility] History of Present Illness History of Present Illness April Hampton is a 86 year old female assisted-living facility resident who presented to [facility] on the day of admission for elective left knee replacement. She underwent right knee replacement in October of this year. During that hospital stay she had some confusion and difficulty with weakness and fatigue during therapy but [facility]. She has a history of PE several years ago, specifics unkown, atrial fibrillation, chronic anticoagulation and COPD along with hypothyroidism. She underwent left total knee arthroplasty by Dr. Zuniga today. Estimated blood loss was 5 mL. She had spinal and regional block with MAC anesthesia. Currently she is doing well after having received some pain medication. Denies any nausea, vomiting, chest pain, shortness of breath. Pain is currently controllable. History is obtained from her and review of old records. Review of Systems Const: Denies: fever(s) or chills ENMT: Denies: throat pain or nasal congestion Card: Denies: chest pain, palpitations or edema Resp: Reports: other (Denies having had Covid, unsure if she had the Covid vaccine); Denies: dyspnea, productive cough or non-productive cough GI: Denies: abdominal pain, nausea, vomiting, diarrhea or constipation : Reports: urinary incontinence; Denies: difficulty voiding Musc: Reports: joint pain (Chronic knee pain) Skin/Breast: Denies: rash or pruritus Neuro: Reports: difficulty walking (Secondary to chronic generalized weakness and osteoarthritis); Denies: headache(s) Psych: Reports: memory loss (Sometimes cannot remember things); Denies: anxiety Cedrick/Lymph: Denies: easy bruising or easy bleeding Meds/Allergies Home Medications and Allergies Home Medications Medication Instructions Recorded Confirmed Last Taken Type albuterol sulfate 2.5 mg/0.5 mL 5 mg INHALATION Q6H 07/04/20 03/21/21 03/21/21 History solution for nebulization albuterol sulfate 90 mcg/actuation 1 inh INHALATION QID 07/04/20 03/21/21 03/21/21 09:00 History aerosol inhaler amiodarone 200 mg tablet 200 mg PO DAILY 07/04/20 03/21/21 03/21/21 09:00 History apixaban 5 mg tablet 5 mg PO BID 07/04/20 03/21/21 03/17/21 History gabapentin 300 mg capsule 200 mg PO TID cap 07/04/20 03/21/21 03/21/21 09:00 History levothyroxine 88 mcg capsule 88 mcg PO DAILY 07/04/20 03/21/21 03/21/21 05:00 History mirtazapine 15 mg tablet 15 mg PO DAILY 07/04/20 03/21/21 03/20/21 History omeprazole 20 mg capsule,delayed 20 mg PO DAILY 07/04/20 03/21/21 03/21/21 09:00 History release tramadol 50 mg tablet 50 mg PO Q6H PRN 07/04/20 03/16/21 Unknown History celecoxib 200 mg PO DAILY #30 cap 11/25/20 03/21/21 03/21/21 09:00 Rx Allergies Allergy/AdvReac Type Severity Reaction Status Date / Time No Known Allergies Allergy Verified 03/21/21 12:46 Current Medications Current Medications Generic Name Dose Route Start Last Admin Trade Name Freq PRN Reason Stop Dose Admin Albuterol Sulfate 2.5 mg 03/21/21 21:00 03/21/21 21:26 Albuterol 2.5 Mg/0.5 Ml Neb INHALATION 2.5 mg Q6H.RESPIRATORY ANGELINE Administration Chlorhexidine Gluconate 30 ml 03/21/21 21:00 03/21/21 20:59 Chlorhexidine Gluconate 0.12% Btl 473 Ml MUCOUS MEM 30 ml QID ANGELINE Administration Gabapentin 200 mg 03/21/21 21:00 03/21/21 20:52 Gabapentin 100 Mg Capsule PO 200 mg TID ANGELINE Administration Acetaminophen 1,000 mg in 100 mls @ 400 mls/hr 03/21/21 21:00 03/21/21 21:49 Acetaminophen IV 03/22/21 13:14 Infused Q8H ANGELINE Infusion Mirtazapine 15 mg 03/21/21 21:00 03/21/21 20:53 Mirtazapine 15 Mg Tablet PO 15 mg BEDTIME ANGELINE Administration Oxycodone HCl 5 mg 03/21/21 19:09 03/21/21 20:59 Oxycodone 5 Mg Ir Tab/Cap PO 5 mg Q4H PRN Administration MODERATE PAIN PFSH Acute PFSH: Medical History (Updated 03/22/21 @ 02:44 by Carol Avery MD) A-fib Abnormal finding on EKG Possible brugada pattern noted 10/2020 COPD (chronic obstructive pulmonary disease) History of pulmonary embolus (PE) Hypothyroidism Primary osteoarthritis of knees, bilateral Shingles Surgical History (Updated 03/22/21 @ 02:37 by Carol Avery MD) History of left heart catheterization History of total right knee replacement (~10/2020) Family History Other CAD (coronary artery disease) Diabetes Social History (Updated 03/22/21 @ 02:39 by Carol Avery MD) Smoking and tobacco status: never smoked Alcohol intake: current Alcohol intake frequency: holidays/special occasions only Alcohol use comment: rare onel Substance/Drug Use: never Lives independently: No Housing: Other Details: nursing facility versus assited living facility Vitals/I&O/Wt Last Vital Signs Temp 98.2 F 03/21/21 19:58 Pulse 54 L 03/21/21 21:31 Resp 16 03/21/21 21:26 BP 159/82 03/21/21 19:58 Pulse Ox 91 03/21/21 21:26 03/21/21 03/21/21 03/21/21 06:59 14:59 22:59 Intake Total 100 / 100 1200 / 1300 Output Total 5 / 5 Balance 100 / 100 1195 / 1295 Physical Exam Narrative: EXAM NARRATIVE: Constitutional: Awake and alert, cooperative HEENT: Extraocular movements intact, pupils were not pinpoint Neck: Supple Respiratory: Clear to auscultation bilaterally Cardiovascular: Bradycardic but regular rhythm Abdomen: Soft, nontender : Pitts catheter in place Extremities: Left lower extremity dressings intact with ice over knee, able to wiggle toes left foot Skin: Brisk capillary refill at toes bilaterally Neuro: Speech clear, face symmetric Psych: Normal affect A&P Assessment and plan (1) Status post total left knee replacement: Postop day 0 Status: Acute (2) Acute kidney injury: Versus progression of chronic kidney disease. Laboratory studies were done on March 16 demonstrating BUN and creatinine of 44/1.6. Last comparable labs from November showed 22/1.2. Home medication list indicates celecoxib. Admits that she may not have been drinking fluids as much as she needed to lately. Does have urine specific gravity at the upper range of normal. Status: Acute (3) Chronic anticoagulation: With eliquis Status: Chronic (4) A-fib: Chronically on amiodarone, most recent EKG on 03/16 with sinus bradycardia in the upper 50s, has been maintaining in the mid to upper 50s thus far postoperatively Status: Chronic Qualifiers: Atrial fibrillation type: unspecified chronic Qualified Code(s): I48.20 - Chronic atrial fibrillation, unspecified (5) History of pulmonary embolus (PE): Details unknown but was several years ago Status: Chronic (6) COPD (chronic obstructive pulmonary disease): On breathing treatments usually Status: Chronic (7) Hypothyroidism: Chronically on levothyroxine, TSH was checked in November of this year and was normal at 3.62 Status: Chronic Qualifiers: Hypothyroidism type: acquired Qualified Code(s): E03.9 - Hypothyroidism, unspecified Additional A&P Information Contaminated urinary specimen IV fluids initially Recheck electrolytes and renal function May have to consider holding Celebrex and adjusting other pain control depending on renal function Monitor urine output Telemetry monitoring Eliquis order has been placed to resume in the morning Change amiodarone to 100 mg daily Usual breathing medications have been ordered Home gabapentin and tramadol have continued along with oxycodone, scheduled Tylenol for 24 hours along with currently usual Celebrex for pain Continue home levothyroxine Continue home mirtazapine Has perioperative antibiotics and order for Pitts catheter removal already in place Scheduled laxatives are ordered PPI is ordered, usual home medication Agree with iron replacement H&H is ordered for in the morning Plan is for disposition back to usual facility for ongoing rehabilitation PT to evaluate, last hospital stay for similar surgery was not eager to participate in therapy and has already expressed a concern about that this time around Monitor for confusion which occurred postoperatively last surgery earlier this year Supportive care otherwise Plans were discussed with patient and she was given an opportunity to ask questions Full code We will follow along while patient is here and address medical issues as indicated. Thank you for consultation. 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
[2021-03-22] VITALS (15 sets, daily range): BP systolic 106–147; BP diastolic 49–74; PULSE 49–85; RESP 12–20; TEMP 36.3–36.7; O2SAT 88–98
--- NOTE | 2021-03-22 00:28 | PC.NURSE ---
i reported low temp 97.3 and low pulse 56
[2021-03-22] MEDS: sodium chloride 0.9% 1,000 ML 75 ML IV ×2 (03:09→15:01)
[2021-03-22] MEDS: acetaminophen 1,000 MG/100 ML PIGGYBACK 400 MG IV ×2 (04:13→13:07)
[2021-03-22 06:08] LABS: Basophils # 0.1 10^3/uL (0.0-0.1); Basophils % 0.8 %; Eosinophils # 0.2 10^3/uL (0.0-0.8); Eosinophils % 2.8 %; Hematocrit 29.4 % (37.0-47.0); Hemoglobin 8.9 g/dL (11.5-15.3); Lymphocytes # 1.8 10^3/uL (0.8-4.8); Lymphocytes % 29.7 %; Mean Corpuscular HGB Conc 30.3 g/dL (30.0-36.0); Mean Corpuscular Hemoglobin 31.3 pg (28.0-34.0); Mean Corpuscular Volume 103.5 fl (81-99); Mean Platelet Volume 9.7 fL (7.4-10.4); Monocytes # 0.4 10^3/uL (0.2-0.9); Monocytes % 7.2 %; Neutrophils # 3.61 10^3/uL (1.8-7.7); Neutrophils % 59.3 %; Nucleated Red Blood Cells % 0 %; Platelet Count 182 10^3/cmm (130-400); Red Blood Count 2.84 10^6/uL (4.1-5.3); Red Cell Distribution Width 13.2 % (12.1-15.1); White Blood Count 6.1 10^3/uL (4.0-10.0)
[2021-03-22 07:08] LABS: Blood Urea Nitrogen 29 mg/dL (8-23); Carbon Dioxide 24 mmol/L (22-29); Chloride 106 mmol/L (98-107); Glucose 75 mg/dL (65-115); Magnesium 1.9 mg/dL (1.7-2.3); Osmolality Calculated 287 mOsm/kg (285-295); Phosphorus 3.3 mg/dL (2.5-4.5); Sodium 136 mmol/L (136-145)
--- NOTE | 2021-03-22 07:34 | P.PN_ITS ---
Subjective Subjective: Interval history: No acute events overnight. Patient doing well. She is alert oriented x3. She offers no complaints. Vitals/I&O/Wt Last Vital Signs Temp 98.0 F 03/22/21 05:16 Pulse 60 03/22/21 05:16 Resp 16 03/22/21 05:16 BP 124/66 03/22/21 05:16 Pulse Ox 90 03/22/21 05:16 03/21/21 03/22/21 03/22/21 22:59 06:59 14:59 Intake Total 1200 / 1300 160 / 1460 Output Total Balance 1195 / 1295 160 / 1455 Physical Exam Narrative: EXAM NARRATIVE: General: Alert oriented x3, patient seen laying in bed breathing room air. HEENT: Normocephalic, atraumatic, EOMI, Cardio: Regular rate rhythm, normal S1-S2, no murmurs rubs gallops, Respiratory: Good bilateral air entry, no wheezes no rhonchi appreciated GI: Abdomen soft, nontender, nondistended, bowel sounds + Behavior: Appropriate and cooperative Extremities: no edema, no cyanosis, right knee has surgical scar present. Left knee wrapped up in Kerlix. Did not remove Band-Aid. Will defer to surgery. Data : 03/22/21 05:55 03/22/21 05:55 A&P Assessment and plan (1) Hypothyroidism: Status: Chronic Qualifiers: Hypothyroidism type: acquired Qualified Code(s): E03.9 - Hypothyroidism, unspecified (2) Chronic anticoagulation: Status: Chronic (3) Status post total left knee replacement: Status: Acute (4) History of total right knee replacement: Status: Acute (5) COPD (chronic obstructive pulmonary disease): Status: Chronic (6) A-fib: Status: Chronic Qualifiers: Atrial fibrillation type: unspecified chronic Qualified Code(s): I48.20 - Chronic atrial fibrillation, unspecified (7) History of pulmonary embolus (PE): Status: Chronic Additional A&P Information Postop day 1 -Continue Eliquis Continue amiodarone at 100 mg daily Duo nebs as needed Continue gabapentin, tramadol, oxycodone for pain Continue levothyroxine, mirtazapine Docusate senna for constipation, MiraLAX Continue patient's PPI Hemoglobin is stable. We will continue to monitor. Physical therapy ordered Patient on room air when seen this morning. He was saturating 94%. #CKD. PUNEET. Creatinine 1.6 on admission. Today 1.3. We will continue gentle hydration with IV fluids. We will continue to follow patient. Attestations Medical Necessity Statement*: Defer to primary team Time Spent in Patient Care: less than 15 minutes Coding Level of Care Code Acute Product Development Intern for g Fwd Diagnoses Hypothyroidism E03.9 Hypothyroidism type: acquired Chronic anticoagulation Z79.01 Status post total left knee replacement Z96.652 History of total right knee replacement Z96.651 COPD (chronic obstructive pulmonary disease) J44.9 A-fib I48.20 Atrial fibrillation type: unspecified chronic History of pulmonary embolus (PE) Z86.711
[2021-03-22] MEDS: cholecalciferol (vitamin D3) 1,000 unit Tablet 1000 UNIT PO (08:40)
[2021-03-22] MEDS: levothyroxine 88 mcg Tablet PO (08:40)
[2021-03-22] MEDS: pantoprazole DR 40 mg Tablet PO (08:40)
[2021-03-22] MEDS: gabapentin 100 mg Capsule 200 MG PO ×3 (08:41→21:33)
[2021-03-22] MEDS: apixaban 5 mg Tablet PO ×2 (08:42→17:07)
[2021-03-22] MEDS: iron polysaccharide complex 150 mg Capsule PO ×2 (08:42→17:07)
[2021-03-22] MEDS: amiodarone 200 mg Tablet 100 MG PO (08:42)
[2021-03-22] MEDS: CELEcoxib 200 mg Capsule PO (08:42)
[2021-03-22] MEDS: calcium carbonate 500 mg Chew Tablet 1000 MG PO ×2 (08:43→17:07)
[2021-03-22] MEDS: multivitamin therapeutic Tablet 1 TAB PO (08:43)
[2021-03-22] MEDS: sennosides-docusate Tablet 2 TAB PO ×2 (08:43→17:07)
[2021-03-22] MEDS: chlorhexidine gluconate 0.12% Btl 473 mL 30 ML MUCOUS MEM ×4 (09:12→21:33)
[2021-03-22] MEDS: mupirocin oint 22 gm 1 APPLIC NASAL ×2 (09:12→17:07)
[2021-03-22] MEDS: TRAMadol 50 mg Tablet PO (09:13)
--- NOTE | 2021-03-22 09:32 | PC.CHAP ---
Pastoral Care Encounter/Spiritual Assessment Type of Contact [] Declined dry roaster visit [] Patient/Family/Request visit [] Outpatient visit [] Follow-up visit [] Physician referral [] Code/Alert [x Routine visit [] Staff referral [] Actively dying [] Patient sleeping [] Family support [] [] Out of room [] Palliative care [] [] Receiving care in room [] Pre-surgical visit [] Trauma [] Long length of stay [] ICU visit [] Other: Relational/Emotional Strength [x] Patient feels connected with others/family/visitors/staff [] Distress [] Loneliness/isolation [] Abandonment Spirituality of Patient [x] Person of Huma [] Attends Adventist of their Huma []x Believes in Prayer [] Reads Bible or Holiness materials [] There are Spiritual issues to be addressed Clean Room Operator Interventions [x] Prayer [x] Active listening [] Non-anxious presence x[x] Spiritual/emotional support [] Crisis/trauma care [] Spiritual counseling [] Bereavement support [] Provided bereavement packet [] Provided Bible/devotional materials [] Provided toy/stuffed animal, coloring book to patient or family member [] Provided Communion [] Anointing/[place] [] Salvation [x] Completed spiritual assessment [] Other: Impact on Illness or Injury [] Angry [] Fearful [] Anxious [] Often cries [] Exhaustion [] Unable to work [] Unable to attend mormon [] Unable to walk/stand [] Unable to read [] Unable to drive [] Unable to eat/drink [] Unable to sleep [] Unable to be with family [] Patient intubated [] Other: Summary Time spent with patient 16 min
--- NOTE | 2021-03-22 13:43 | P.PN_ITS ---
Subjective Subjective: Interval history: Patient is seen today. She is not her completely lucid self, but she is alert and oriented. She participated with physical therapy in a limited fashion. She states this knee is not quite as painful as her last knee. She is being monitored by the medical service particularly given her previous history of significant confusion requiring work- up at her last total knee arthroplasty. Also she is at risk for PE secondary to being off of her Eliquis recently for her surgery. Medications: Reviewed: Yes Vitals/I&O/Wt Last Vital Signs Temp 97.8 F 03/22/21 12:11 Pulse 61 03/22/21 12:11 Resp 16 03/22/21 12:11 BP 147/74 03/22/21 12:11 Pulse Ox 97 03/22/21 12:11 03/21/21 03/22/21 03/22/21 22:59 06:59 14:59 Intake Total 1200 / 1300 160 / 1460 869.5 / 869.5 Output Total 5 / 5 Balance 1195 / 1295 160 / 1455 869.5 / 869.5 Physical Exam Const: COMMON NORMALS: no acute distress, average body habitus, patient oriented x3 and alert GENERAL APPEARANCE: cooperative and comfortable ORIENTATION/CONSCIOUSNESS: Yes awake HENMT: COMMON NORMALS: normocephalic and atraumatic HEAD & SCALP: normo cephalic and atraumatic Eye: GENERAL EYE: appearance normal, both eyes and all related structures Chest: COMMONS NORMALS: normal inspection of the chest Resp: COMMON NORMALS: normal respiratory effort EFFORT & INSPECTION: Yes able to speak in complete sentences and Yes symmetric chest movement Extremity: LEFT LOWER EXTREMITY: Yes knee joint Left knee: Yes inspection (Dressing is dry and intact), Yes palpation (Minimal to no tenderness), Yes ROM (Not evaluated, working with physical therapy) and Yes neurovascular exam (Intact motor and sensory) Neuro: COMMON NORMALS: patient oriented x3 SENSORIUM/ORIENTATION: Yes alert Psych: COMMON NORMALS: mental status grossly normal APPEARANCE: Yes grossly normal ATTITUDE: Yes calm and Yes engaged ATTENTION/CONCENTRATION: Yes attention grossly intact Skin: COMMON NORMALS: no rashes or lesions noted GENERAL SKIN EXAM: no rashes or lesions noted Data : 03/22/21 05:55 03/22/21 05:55 A&P Assessment and plan (1) Status post total left knee replacement not using cement: Patient underwent left total knee arthroplasty and now is postop day 1. She is doing well, but she is slightly more confused than normal. Normally, she is quite lucid. She has not worked aggressively with physical therapy today secondary to this. The outer dressing is removed. Her OpSite is dry and intact. Her calf is soft and nontender. There is no evidence of DVT. She is neurologically intact. She is unable to actively lift her leg. She states this knee hurts less than the opposite knee, but she has not been able to participate aggressively in therapy at this time. Status: Acute (2) Primary osteoarthritis of left knee: Status: Acute Attestations Medical Necessity Statement*: Patient requires ongoing medical monitoring for worsening confusion, particularly in postop day 2, for DVT, and for other medical issues. Coding Level of Care Code Acute Tandem Mill Operator for Emi Browne Diagnoses Status post total left knee replacement not using cement Z96.652 Primary osteoarthritis of left knee M17.12
[2021-03-22] MEDS: mirtazapine 15 mg Tablet PO (21:33)
[2021-03-22] MEDS: acetaminophen 500 mg Tablet 1000 MG PO (21:33)
[2021-03-23] VITALS (13 sets, daily range): BP systolic 117–137; BP diastolic 42–72; PULSE 60–69; RESP 14–18; TEMP 36.5–36.9; O2SAT 93–98
[2021-03-23 03:27] LABS: Basophils % 0.4 %; Eosinophils # 0.1 10^3/uL (0.0-0.8); Eosinophils % 0.9 %; Hematocrit 28.9 % (37.0-47.0); Hemoglobin 8.7 g/dL (11.5-15.3); Lymphocytes # 1.1 10^3/uL (0.8-4.8); Lymphocytes % 15.6 %; Mean Corpuscular HGB Conc 30.1 g/dL (30.0-36.0); Mean Corpuscular Hemoglobin 31.6 pg (28.0-34.0); Mean Corpuscular Volume 105.1 fl (81-99); Mean Platelet Volume 10.1 fL (7.4-10.4); Monocytes # 0.5 10^3/uL (0.2-0.9); Monocytes % 7.2 %; Neutrophils # 5.11 10^3/uL (1.8-7.7); Neutrophils % 75.5 %; Nucleated Red Blood Cells % 0 %; Platelet Count 180 10^3/cmm (130-400); Red Blood Count 2.75 10^6/uL (4.1-5.3); Red Cell Distribution Width 13.4 % (12.1-15.1); White Blood Count 6.8 10^3/uL (4.0-10.0)
[2021-03-23 03:53] LABS: Anion Gap 9.1 (5-19); Blood Urea Nitrogen 25 mg/dL (8-23); Calcium 8.2 mg/dL (8.5-10.5); Carbon Dioxide 25 mmol/L (22-29); Chloride 108 mmol/L (98-107); Glucose 133 mg/dL (65-115); Osmolality Calculated 292 mOsm/kg (285-295); Potassium 4.1 mmol/L (3.5-5.1); Sodium 138 mmol/L (136-145)
[2021-03-23] MEDS: sodium chloride 0.9% 1,000 ML 75 ML IV ×2 (05:21→18:03)
[2021-03-23] MEDS: acetaminophen 500 mg Tablet 1000 MG PO ×3 (05:21→20:16)
[2021-03-23] MEDS: levothyroxine 88 mcg Tablet PO (09:55)
[2021-03-23] MEDS: CELEcoxib 200 mg Capsule PO (09:55)
[2021-03-23] MEDS: gabapentin 100 mg Capsule 200 MG PO ×3 (09:55→20:16)
[2021-03-23] MEDS: multivitamin therapeutic Tablet 1 TAB PO (09:55)
[2021-03-23] MEDS: calcium carbonate 500 mg Chew Tablet 1000 MG PO ×2 (09:55→16:55)
[2021-03-23] MEDS: cholecalciferol (vitamin D3) 1,000 unit Tablet 1000 UNIT PO (09:55)
[2021-03-23] MEDS: iron polysaccharide complex 150 mg Capsule PO ×2 (09:55→16:55)
[2021-03-23] MEDS: chlorhexidine gluconate 0.12% Btl 473 mL 30 ML MUCOUS MEM ×4 (09:56→20:17)
[2021-03-23] MEDS: amiodarone 200 mg Tablet 100 MG PO (09:56)
[2021-03-23] MEDS: pantoprazole DR 40 mg Tablet PO (09:56)
[2021-03-23] MEDS: sennosides-docusate Tablet 2 TAB PO ×2 (09:56→16:55)
[2021-03-23] MEDS: apixaban 5 mg Tablet PO ×2 (09:56→16:55)
[2021-03-23] MEDS: mupirocin oint 22 gm 1 APPLIC NASAL ×2 (09:56→16:55)
--- NOTE | 2021-03-23 10:57 | P.PN_ITS ---
Subjective Subjective: Interval history: seen and examined today. she seems quite perked up today compared to yesterday however i discussed with Dr. Zuniga who believes pt is not back to her usual self. With this concern, i will order head CT to be sure. Patient states she feels better and has some pain when she stands up. Does not offer any other complaints. Was offered a stool softener to which pt declined at this time. she says she uses o2 at night time only and not during day. Medications: Reviewed: Yes Vitals/I&O/Wt Last Vital Signs Temp 97.7 F 03/23/21 07:45 Pulse 61 03/23/21 09:03 Resp 18 03/23/21 08:57 BP 117/63 03/23/21 07:45 Pulse Ox 97 03/23/21 08:57 03/22/21 03/23/21 03/23/21 22:59 06:59 14:59 Intake Total 950 / 1819.5 1000 / 2819.5 Output Total 220 / 220 Balance 950 / 1819.5 780 / 2599.5 Physical Exam Narrative: EXAM NARRATIVE: General: Alert oriented x3, patient seen laying in bed breathing 2L NC. HEENT: Normocephalic, atraumatic, EOMI, Cardio: Regular rate rhythm, normal S1-S2, no murmurs rubs gallops, Respiratory: Good bilateral air entry, no wheezes no rhonchi appreciated GI: Abdomen soft, nontender, nondistended, bowel sounds + Behavior: Appropriate and cooperative Extremities: no cyanosis, right knee has surgical scar present. Left knee has incisional bandage. No erythema noted around. Trace edema lower extremities. Data : 03/23/21 02:40 03/23/21 02:40 A&P Assessment and plan (1) Hypothyroidism: Status: Chronic Qualifiers: Hypothyroidism type: acquired Qualified Code(s): E03.9 - Hypothyroidism, unspecified (2) Chronic anticoagulation: Status: Chronic (3) Status post total left knee replacement: Status: Acute (4) History of total right knee replacement: Status: Acute (5) COPD (chronic obstructive pulmonary disease): Status: Chronic (6) A-fib: Status: Chronic Qualifiers: Atrial fibrillation type: unspecified chronic Qualified Code(s): I48.20 - Chronic atrial fibrillation, unspecified (7) History of pulmonary embolus (PE): Status: Chronic Additional A&P Information Postop day 2 left total knee replacement -Continue Eliquis Continue amiodarone at 100 mg daily since HR 50-60. She will need to follow with her basic acoustic analyst to address dose after discharge. Will dc on 100 mg daily due to bradycardic episodes on admission. Duo nebs as needed Continue gabapentin, tramadol, oxycodone for pain Continue levothyroxine, mirtazapine Docusate senna for constipation, MiraLAX - pt has refused for now. Continue patient's PPI Hemoglobin is stable. We will continue to monitor. Physical therapy ordered Continue o2 at night. #Post -op confusion - Will order head ct today #CKD. PUNEET. Creatinine 1.6 on admission. Today 1.2. We will continue gentle hydration with IV fluids. We will continue to follow patient. DC as per Dr. zuniga's recommendations. Will plan for in morning as long as pt continues to do well. Attestations Medical Necessity Statement*: Defer to primary team Time Spent in Patient Care: 16 - 35 minutes Coding Level of Care Code Acute Train Operations Manager for Chg Fwd Diagnoses Hypothyroidism E03.9 Hypothyroidism type: acquired Chronic anticoagulation Z79.01 Status post total left knee replacement Z96.652 History of total right knee replacement Z96.651 COPD (chronic obstructive pulmonary disease) J44.9 A-fib I48.20 Atrial fibrillation type: unspecified chronic History of pulmonary embolus (PE) Z86.711
--- NOTE | 2021-03-23 12:16 | PM.PN ---
Subjective Subjective: Interval history: The patient is seen this morning, and she is still somewhat flat and certainly not her typical engaging self. She does not exhibit josh confusion, however. She will continue to work with physical therapy today, and hopefully, she can complete more activities with them and become safe for more independent transfers with further therapies. Medications: Reviewed: Yes Vitals/I&O/Wt Last Vital Signs Temp 97.7 F 03/23/21 07:45 Pulse 61 03/23/21 09:03 Resp 18 03/23/21 08:57 BP 117/63 03/23/21 07:45 Pulse Ox 97 03/23/21 08:57 03/22/21 03/23/21 03/23/21 22:59 06:59 14:59 Intake Total 950 / 1819.5 1000 / 2819.5 Output Total 220 / 220 Balance 950 / 1819.5 780 / 2599.5 Physical Exam Const: COMMON NORMALS: no acute distress, average body habitus and patient oriented x3 GENERAL APPEARANCE: cooperative and comfortable ORIENTATION/CONSCIOUSNESS: Yes awake HENMT: COMMON NORMALS: normocephalic and atraumatic HEAD & SCALP: normocephalic and atraumatic Eye: GENERAL EYE: appearance normal, both eyes and all related structures Chest: COMMONS NORMALS: normal inspection of the chest Resp: COMMON NORMALS: normal respiratory effort EFFORT & INSPECTION: Yes able to speak in complete sentences and Yes symmetric chest movement Extremity: LEFT LOWER EXTREMITY: Yes knee joint (Dressing is dry and intact.) Left knee: Yes inspection (No ecchymosis or erythema.), Yes palpation (Minimal tenderness to palpation.), Yes ROM (Range of motion not evaluated.) and Yes neurovascular exam (Intact distally to motor and sensory function.) Neuro: COMMON NORMALS: patient oriented x3 Psych: COMMON NORMALS: mental status grossly normal APPEARANCE: Yes grossly normal ATTITUDE: Yes calm and Yes engaged ATTENTION/CONCENTRATION: Yes attention grossly intact Skin: COMMON NORMALS: no rashes or lesions noted GENERAL SKIN EXAM: no rashes or lesions noted Data : 03/23/21 02:40 03/23/21 02:40 A&P Assessment and plan (1) Status post total left knee replacement not using cement: Patient is doing well following left total knee arthroplasty, but she has had some slight mental status change and has not participated with therapy aggressively at this point. At the last total knee in October, the patient had similar events. She became confused on the second postoperative day and required further medical interventions including a work-up with a head scan to assure there was no other reason for her confusion. She is planning return to residential facility. Likely, this will be tomorrow provided she is medically stable. Medical service continues to follow her. At time of discharge, we will continue the patient's Eliquis as per presurgical dosing. Status: Acute (2) Primary osteoarthritis of left knee: Status: Acute Attestations Medical Necessity Statement*: Patient requires ongoing inpatient rehabilitation and medical management to ensure safety. Coding Level of Care Code Acute Intervention Manager for Emi Browne Diagnoses Status post total left knee replacement not using cement Z96.652 Primary osteoarthritis of left knee M17.12
--- NOTE | 2021-03-23 12:20 | P.DS_ITS ---
Discharge Providers Date of Admission: 03/21/21 18:26 Date of Discharge: March 25, 2021 Attending Provider at Admission: Madonna Zuniga MD Attending Provider at Discharge: Madonna Zuniga MD Primary Care Provider: Milagros Pimentel [place], [facility] [place] Diagnoses at Discharge Discharge Diagnosis (1) Status post total left knee replacement not using cement: Status: Acute Permanent problem details: The [place] total knee system with a size 3 triathlon beaded posterior stabilized femur left, a triathlon titanium tibial component size 3 beaded, a triathlon X3 posterior stabilized tibial bearing insert size 3 X 11 mm and a beaded triathlon titanium asymmetric patella size 35 x 10 mm (2) Primary osteoarthritis of left knee: Status: Acute Reason for Visit Reason for Visit: Left knee osteoarthritis Hospital Course Hospital Course This 86-year-old woman in assisted living presented on March 21 for same-day surgery. She underwent a left total knee arthroplasty. This was well- tolerated. She has previously undergone right total knee arthroplasty, and she had issues with confusion on second postoperative day and required the services of the medical service for monitoring during her recovery. Therefore, given the patient's previous history of pulmonary embolism and prior confusion following anesthetic for her total knee arthroplasty, she was admitted to the hospital for postoperative treatments. On the first postoperative day, the patient was doing well, but she was not her completely lucid self. On the second postoperative day, she was slightly more confused. This was evaluated by the medical service. Head CT was negative for any acute change. The patient will continue working with physical therapy. Further evaluation with laboratory and the medical s ervice demonstrated that the patient's H&H decreased, and the patient was maintained in an additional day for observation. On the fourth postoperative day, March 25, the patient was stable. She was having no symptoms. And although her H&H was 8 and 26.1, the patient's daughter felt that she wanted to return her to her place of residence. Therefore, the patient was discharged to her [facility] under fci status. Physical Exam Narrative: EXAM NARRATIVE: Examination was accomplished on March 23 and is listed below. There is no evidence of postoperative complication or infection. There is no evidence of DVT. Patient was maintained in house for medical [facility], and evaluated from the hospitalist team after this evaluation. Const: COMMON NORMALS: no acute distress, average body habitus and patient oriented x3 GENERAL APPEARANCE: cooperative and comfortable ORIENTATION/CONSCIOUSNESS: Yes awake HENMT: COMMON NORMALS: normocephalic and atraumatic HEAD & SCALP: normocephalic and atraumatic Eye: GENERAL EYE: appearance normal, both eyes and all related structures Chest: COMMONS NORMALS: normal inspection of the chest Resp: COMMON NORMALS: normal respiratory effort EFFORT & INSPECTION: Yes able to speak in complete sentences and Yes symmetric chest movement Extremity: LEFT LOWER EXTREMITY: Yes knee joint Left knee: Yes inspection (No significant swelling or ecchymosis), Yes palpation (Minimal swelling), Yes ROM (Not evaluated) and Yes neurovascular exam Neuro: COMMON NORMALS: patient oriented x3 Psych: COMMON NORMALS: mental status grossly normal APPEARANCE: Yes grossly normal ATTITUDE: Yes calm and Yes engaged ATTENTION/CONCENTRATION: Yes attention grossly intact Skin: COMMON NORMALS: no rashes or lesions noted GENERAL SKIN EXAM: no rashes or lesions noted Discharge Data Data Completed and Pending: Completed Studies During Hospitalization Category Date Time Status XR knee LT 1-2V 7 [id number] Urgent Exams 03/21/21 18:22 Completed Laboratory Last Values WBC 5.4 10^3/uL (4.0- 10.0) 03/25/21 06:01 RBC 2.37 10^6/uL (4.1 -5.3) L 03/25/21 06:01 Hgb 8.0 g/dL (11.5-15 .3) L 03/25/21 09:41 Hct 26.1 % (37.0-47.0 ) L 03/25/21 09:41 MCV 105.5 fl (81-99) H 03/25/21 06:01 MCH 32.1 pg (28.0-34. 0) 03/25/21 06:01 MCHC 30.4 g/dL (30.0-3 6.0) 03/25/21 06:01 RDW 14.2 % (12.1-15.1 ) 03/25/21 06:01 Plt Count 180 10^3/cmm (130 -400) 03/25/21 06:01 MPV 9.8 fL (7.4-10.4) 03/25/21 06:01 Neut % (Auto) 59.8 % 03/25/21 06:01 Lymph % (Auto) 28.4 % 03/25/21 06:01 Graves % (Auto) 5.9 % 03/25/21 06:01 Eos % (Auto) 4.5 % 03/25/21 06:01 Baso % (Auto) 0.7 % 03/25/21 06:01 Neut # (Auto) 3.21 10^3/uL (1.8 -7.7) 03/25/21 06:01 Lymph # (Auto) 1.5 10^3/uL (0.8- 4.8) 03/25/21 06:01 Graves # (Auto) 0.3 10^3/uL (0.2- 0.9) 03/25/21 06:01 Eos # (Auto) 0.2 10^3/uL (0.0- 0.8) 03/25/21 06:01 Baso # (Auto) 0.0 10^3/uL (0.0- 0.1) 03/25/21 06:01 Nucleated RBC % (a uto) 0 % 03/25/21 06:01 Nucleated RBCs # 0.0 /100WBC 03/25/21 06:01 Sodium 140 mmol/L (136-1 45) 03/25/21 06:01 Potassium 4.2 mmol/L (3.5-5 .1) 03/25/21 06:01 Chloride 111 mmol/L (98-10 7) H 03/25/21 06:01 Carbon Dioxide 23 mmol/L (22-29) 03/25/21 06:01 Anion Gap 10.2 (5-19) 03/25/21 06:01 BUN 27 mg/dL (8-23) H 03/25/21 06:01 Creatinine 1.1 mg/dL (0.5-0. 9) H 03/25/21 06:01 GFR Calculation Not Reportable 03/25/21 06:01 Glucose 96 mg/dL (65-115) 03/25/21 06:01 Calculated Osmolal ity 295 mOsm/kg (285- 295) 03/25/21 06:01 Calcium 7.9 mg/dL (8.5-10 .5) L 03/25/21 06:01 Phosphorus 3.3 mg/dL (2.5-4. 5) 03/22/21 05:55 Magnesium 1.9 mg/dL (1.7-2. 3) 03/25/21 06:01 Total Bilirubin 0.3 mg/dL (0.15-1 .2) 03/16/21 10:50 AST 18 U/L (0-32) 03/16/21 10:50 ALT 7 U/L (0-33) 03/16/21 10:50 Alkaline Phosphata se 66 IU/L (35-105) 03/16/21 10:50 Total Protein 6.9 g/dL (6.6-8.7 ) 03/16/21 10:50 Albumin 3.8 g/dL (3.5-5.2 ) 03/16/21 10:50 Globulin 3.1 g/dL (1.3-4.6 ) 03/16/21 10:50 Urine Color Yellow (Yellow) 03/16/21 10:50 Urine Appearance Clear (CLEAR) 03/16/21 10:50 Urine pH 5 (5-7) 03/16/21 10:50 Ur Specific Gravit y 1.020 (1.005-1.0 30) 03/16/21 10:50 Urine Protein Neg (Negative) 03/16/21 10:50 Urine Glucose (UA) Norm (Normal) 03/16/21 10:50 Urine Ketones Negative (Negati ve) 03/16/21 10:50 Urine Blood 2+ (Negative) H 03/16/21 10:50 Urine Nitrate Negative (Negati ve) 03/16/21 10:50 Urine Bilirubin 1+ (Negative) H 03/16/21 10:50 Urine Urobilinogen Norm mg/dL (Negat reagan) 03/16/21 10:50 Ur Leukocyte Aydee ase Negative (Negati ve) 03/16/21 10:50 Urine RBC 5-10 /hpf (0-2) H 03/16/21 10:50 Urine WBC None /hpf (0-5) 03/16/21 10:50 Ur Squamous Epith Cells 10-15 /hpf (0-5) H 03/16/21 10:50 Amorphous Sediment Not Reportable 03/16/21 10:50 Urine Bacteria 1+ /hpf (NONE) H 03/16/21 10:50 Vitals: Last Vital Signs Temp 97.6 F 03/25/21 07:57 Pulse 63 03/25/21 11:06 Resp 16 03/25/21 11:06 BP 128/69 03/25/21 07:57 Pulse Ox 97 03/25/21 11:06 Discharge Plan Discharge Patient Disposition: Xfer SNF Condition: Stable Prescriptions: New acetaminophen 500 mg Tablet 1,000 mg PO Q8H 15 Days Qty: 90 RF: 0 oxycodone 5 mg Tablet 5 mg PO Q4H PRN (Reason: Moderate Pain) 7 Days Qty: 30 RF: 0 Continued albuterol sulfate 2.5 mg/0.5 mL solution for nebulization 5 mg inhalation Q6H RF: 0 amiodarone 200 mg tablet 200 mg PO DAILY RF: 0 Eliquis 5 mg tablet 5 mg PO BID RF: 0 omeprazole 20 mg capsule,delayed release(DR/EC) 20 mg PO DAILY RF: 0 albuterol sulfate [Ventolin HFA] 90 mcg/actuation HFA aerosol inhaler 1 inh inhalation QID RF: 0 levothyroxine 88 mcg capsule 88 mcg PO DAILY RF: 0 gabapentin 300 mg capsule 200 mg PO TID RF: 0 tramadol 50 mg tablet 50 mg PO Q6H PRN (Reason: Pain) RF: 0 mirtazapine 15 mg tablet 15 mg PO DAILY RF: 0 celecoxib 200 mg Capsule 200 mg PO DAILY Qty: 30 RF: 0 Discharge Orders: Discharge Order (Routine); Ordered 03/24/21 Ordered By: Madonna Zuniga Referrals: Milagros Pimentel MD, [facility] [Primary Care Provider] - 4-7 days Madonna Zuniga MD [Physician] - 04/03/21 1:15 pm Discharge Diet: Advance as tolerated and Usual diet Discharge Activity: Increase activity as tolerated, Limit activity as instructed and Use walker/crutches as instructed Patient Instructions: Acetaminophen (By mouth), Oxycodone, Slow Release (By mouth), Knee Replacement (DC), Opioid Safety Activity Restrictions/Additional Instructions: Ice and elevation to left lower extremity. Physical therapy for range of motion, gait training, and strengthening. May weight-bear as tolerated. Maintain dressing until it comes off on its own. Discharge Attestations Time Spent in Discharge Care*: greater than 30 min Specific Discharge Activities: educating patient, documenting/other paperwork and evaluating patient/reviewing data Quality Metrics Clinical Quality Measures During this hospital stay, did patient experience: None Coding Level of Care Code Acute Chg FW DC note Exam Comprehensive Diagnoses Status post total left knee replacement not using cement Z96.652 Primary osteoarthritis of left knee M17.12
--- NOTE | 2021-03-23 14:33 | CT_ITS ---
WS: [id number] CT HEAD NONCONTRAST HISTORY: post -op confusion TECHNIQUE: Contiguous axial imaging performed through the brain in 2.5 mm imaging. Bone and soft tiss ue windows. Sagittal and coronal reformats reviewed. All CT scans at [facility] use at least one of these dose optimization techniques: automated exposure control; mA and/or kV adjustment per pa tient size (includes targeted exams where dose is matched to clinical indication); or iterative recon struction. DLP: 901.72 mGy.cm COMPARISON: 11/23/2020 No acute intracranial hemorrhage, midline shift or mass effect. Mild atrophy with advanced low attenuation from microvascular ischemic disease. No focal area of sulc al effacement to suggest new areas of infarction. Ventricles: Normal size with no hydrocephalus. Paranasal sinuses: As visualized are clear. Mastoid air cells: Well pneumatized. Calvarium and scalp: Skull is intact with no soft tissue edema or swelling. CT/CT head wo con* [id number] IMPRESSION: 1. No acute intracranial hemorrhage or edema. 2. Moderate to severe chronic white matter ischemic changes. No acute infarct is evident.
[2021-03-23 18:19] LABS: Basophils % 0.6 %; Eosinophils # 0.1 10^3/uL (0.0-0.8); Eosinophils % 1.8 %; Hematocrit 27.9 % (37.0-47.0); Hemoglobin 8.4 g/dL (11.5-15.3); Lymphocytes # 1.5 10^3/uL (0.8-4.8); Lymphocytes % 22.6 %; Mean Corpuscular HGB Conc 30.1 g/dL (30.0-36.0); Mean Corpuscular Hemoglobin 31.7 pg (28.0-34.0); Mean Corpuscular Volume 105.3 fl (81-99); Mean Platelet Volume 10.1 fL (7.4-10.4); Monocytes # 0.5 10^3/uL (0.2-0.9); Monocytes % 7.5 %; Neutrophils # 4.54 10^3/uL (1.8-7.7); Neutrophils % 67.1 %; Nucleated Red Blood Cells % 0 %; Platelet Count 180 10^3/cmm (130-400); Red Blood Count 2.65 10^6/uL (4.1-5.3); Red Cell Distribution Width 13.7 % (12.1-15.1); White Blood Count 6.8 10^3/uL (4.0-10.0)
[2021-03-23 18:33] LABS: Blood Urea Nitrogen 24 mg/dL (8-23); Calcium 8.1 mg/dL (8.5-10.5); Carbon Dioxide 23 mmol/L (22-29); Chloride 107 mmol/L (98-107); Glucose 116 mg/dL (65-115); Osmolality Calculated 289 mOsm/kg (285-295); Sodium 137 mmol/L (136-145)
[2021-03-23 18:35] LABS: Anion Gap 10.8 (5-19); Potassium 3.8 mmol/L (3.5-5.1)
[2021-03-23] MEDS: mirtazapine 15 mg Tablet PO (20:16)
[2021-03-24 02:10] VITALS: PULSE 65; RESP 16; O2SAT 99
[2021-03-24 02:59] LABS: Basophils % 0.6 %; Eosinophils # 0.2 10^3/uL (0.0-0.8); Eosinophils % 2.9 %; Hematocrit 25.2 % (37.0-47.0); Hemoglobin 7.7 g/dL (11.5-15.3); Lymphocytes # 1.6 10^3/uL (0.8-4.8); Lymphocytes % 24.6 %; Mean Corpuscular HGB Conc 30.6 g/dL (30.0-36.0); Mean Corpuscular Hemoglobin 31.3 pg (28.0-34.0); Mean Corpuscular Volume 102.4 fl (81-99); Mean Platelet Volume 10.3 fL (7.4-10.4); Monocytes # 0.5 10^3/uL (0.2-0.9); Monocytes % 7.3 %; Neutrophils # 4.26 10^3/uL (1.8-7.7); Neutrophils % 64.3 %; Nucleated Red Blood Cells % 0 %; Platelet Count 169 10^3/cmm (130-400); Red Blood Count 2.46 10^6/uL (4.1-5.3); Red Cell Distribution Width 13.7 % (12.1-15.1); White Blood Count 6.6 10^3/uL (4.0-10.0)
[2021-03-24 05:02] VITALS: BP 100/56; PULSE 63; RESP 16; TEMP 36.5; O2SAT 96
[2021-03-24] MEDS: acetaminophen 500 mg Tablet 1000 MG PO ×3 (06:10→20:38)
[2021-03-24 07:40] VITALS: BP 125/70; PULSE 64; RESP 18; TEMP 36.7; O2SAT 91
[2021-03-24 08:47] VITALS: PULSE 65; RESP 18; O2SAT 98
[2021-03-24] MEDS: calcium carbonate 500 mg Chew Tablet 1000 MG PO (09:19)
[2021-03-24] MEDS: amiodarone 200 mg Tablet 100 MG PO (09:19)
[2021-03-24] MEDS: gabapentin 100 mg Capsule 200 MG PO ×3 (09:19→20:37)
[2021-03-24] MEDS: apixaban 5 mg Tablet PO (09:19)
[2021-03-24] MEDS: pantoprazole DR 40 mg Tablet PO (09:19)
[2021-03-24] MEDS: multivitamin therapeutic Tablet 1 TAB PO (09:19)
[2021-03-24] MEDS: iron polysaccharide complex 150 mg Capsule PO (09:19)
[2021-03-24] MEDS: CELEcoxib 200 mg Capsule PO (09:19)
[2021-03-24] MEDS: cholecalciferol (vitamin D3) 1,000 unit Tablet 1000 UNIT PO (09:19)
[2021-03-24] MEDS: levothyroxine 88 mcg Tablet PO (09:19)
[2021-03-24] MEDS: sennosides-docusate Tablet 2 TAB PO (09:19)
[2021-03-24] MEDS: chlorhexidine gluconate 0.12% Btl 473 mL 30 ML MUCOUS MEM (09:20)
[2021-03-24] MEDS: mupirocin oint 22 gm 1 APPLIC NASAL (09:20)
[2021-03-24 11:23] VITALS: BP 131/68; PULSE 68; RESP 18; TEMP 36.9; O2SAT 95
--- NOTE | 2021-03-24 14:11 | P.PN_ITS ---
Subjective Subjective: Interval history: Seen this morning. Hemoglobin 7.7. Will repeat this afternoon if stable or increased we will discharge her today. Discussed with Dr. Douglas and she is okay with it. Medications: Reviewed: Yes Vitals/I&O/Wt Last Vital Signs Temp 98.4 F 03/24/21 11:23 Pulse 68 03/24/21 11:23 Resp 18 03/24/21 11:23 BP 131/68 03/24/21 11:23 Pulse Ox 95 03/24/21 11:23 03/23/21 03/24/21 03/24/21 22:59 06:59 14:59 Intake Total 952.5 / 1072.5 1000 / 1000 Output Total 200 / 200 Balance 952.5 / 1072.5 800 / 800 Physical Exam Narrative: EXAM NARRATIVE: General: Alert oriented x3, patient seen laying in bed breathing 2L NC. HEENT: Normocephalic, atraumatic, EOMI, Cardio: Regular rate rhythm, normal S1-S2, no murmurs rubs gallops, Respiratory: Good bilateral air entry, no wheezes no rhonchi appreciated GI: Abdomen soft, nontender, nondistended, bowel sounds + Behavior: Appropriate and cooperative Extremities: no cyanosis, right knee has surgical scar present. Left knee has incisional bandage. No erythema noted around. Trace edema lower extremities. Data : 03/24/21 16:34 03/23/21 17:55 A&P Assessment and plan (1) Hypothyroidism: Chronically on levothyroxine, TSH was checked in November of this year and was normal at 3.62 Status: Chronic Qualifiers: Hypothyroidism type: acquired Qualified Code(s): E03.9 - Hypothyroidism, unspecified (2) Chronic anticoagulation: With eliquis Status: Chronic (3) Status post total left knee replacement: Postop day 0 Status: Acute (4) History of total right knee replacement: Status: Acute (5) COPD (chronic obstructive pulmonary disease): On breathing treatments usually Status: Chronic (6) A-fib: Chronically on amiodarone, most recent EKG on 03/16 with sinus bradycardia in the upper 50s, has been maintaining in the mid to upper 50s thus far postoperatively Status: Chronic Qualifiers: Atrial fibrillation type: unspecified chronic Qualified Code(s): I48.20 - Chronic atrial fibrillation, unspecified (7) History of pulmonary embolus (PE): Details unknown but was several years ago Status: Chronic Additional A&P Information Postop day 2 left total knee replacement -Continue Eliquis Will let patient got home on home dose amiodarone as HR has stayed stable and ok. She will need to follow with cardiology after discharge. Duo nebs as needed Continue gabapentin, tramadol, oxycodone for pain Continue levothyroxine, mirtazapine Docusate senna for constipation, MiraLAX - pt has refused for now. Continue patient's PPI Hemoglobin is stable. It dropped to 7.7 but did go back up to 8.4 on its own without intervention. Physical therapy ordered Continue o2 at night. #Post -op confusion - Will order head ct today #CKD. PUNEET. Creatinine 1.6 on admission. Today 1.2. We will continue gentle hydration with IV fluids. We will continue to follow patient. DC as per Dr. mena's recommendations. Attestations Medical Necessity Statement*: defer to primary team Coding Level of Care Code Acute Platinum And Palladium Kettle Tender for g Fwd Diagnoses Hypothyroidism E03.9 Hypothyroidism type: acquired Chronic anticoagulation Z79.01 Status post total left knee replacement Z96.652 History of total right knee replacement Z96.651 COPD (chronic obstructive pulmonary disease) J44.9 A-fib I48.20 Atrial fibrillation type: unspecified chronic History of pulmonary embolus (PE) Z86.711
[2021-03-24 16:44] LABS: Basophils % 0.4 %; Eosinophils # 0.1 10^3/uL (0.0-0.8); Eosinophils % 1.4 %; Hematocrit 26.9 % (37.0-47.0); Hemoglobin 8.4 g/dL (11.5-15.3); Lymphocytes # 2.2 10^3/uL (0.8-4.8); Lymphocytes % 28.2 %; Mean Corpuscular HGB Conc 31.2 g/dL (30.0-36.0); Mean Corpuscular Hemoglobin 32.4 pg (28.0-34.0); Mean Corpuscular Volume 103.9 fl (81-99); Mean Platelet Volume 10.1 fL (7.4-10.4); Monocytes # 0.5 10^3/uL (0.2-0.9); Monocytes % 6.2 %; Neutrophils # 4.86 10^3/uL (1.8-7.7); Neutrophils % 63.2 %; Nucleated Red Blood Cells % 0 %; Platelet Count 194 10^3/cmm (130-400); Red Blood Count 2.59 10^6/uL (4.1-5.3); White Blood Count 7.7 10^3/uL (4.0-10.0)
--- NOTE | 2021-03-24 20:11 | PC.NURSE ---
PT HAS DONE WELL FOR ME TODAY. PT IS MORE THEN READY TO GET BACK [place] [facility]. PT HAS NOT HAD ANY COMPLAINTS OF PAIN. PT HAS DONE WELL GETTING UP WITH ME AND A WALKER. PT HAS BEEN IN THE CHAIR A COUPLE OF TIMES TODAY. PT HAD A LARGE BM THIS MORNING. PT IS READY TO DISCHARGE PER DR PATTEN, WE JUST NEED DR POWER'S APPROVAL. [facility] WAS AWARE YESTERDAY THAT PT WOULD BE ARRIVING TO THEIR FACILITY TONIGHT. ALL OF THE PTS DISCHARGE WAS READY AND IT WAS THIS NURSE'S UNDERSTANDING THAT [facility] WAS READY TO RECEIVE PT; THE [facility] HAD EVERYTHING COMPLETED ON THEIR END AND WE HAD EVERYTHING COMPLETED ON OUR END. UPON REVIEWING THE CHART THIS AFTERNOON, THE HOSPITALIST NOTICED THAT THE PTS HEMOGLOBIN HAD DROPPED PRIOR FROM YESTERDAY. THE DOCTOR HAD ORDERED ANOTHER CBC BLOOD DRAW TO BE PREFORMED AT 1800 THIS EVENING. THE DAUGHTER, EUSEBIO, WAS TO BE THE PTS MODE OF TRANSPORTATION AND SAID SHE COULD NOT WAIT THAT LONG. DR POWER WAS CALLED. DR POWER PUT IN AN ORDER FOR THE CBC TO GO AHEAD AN BE REDRAWN NOW (WHICH WAS AROUND 1615). THE DAUGHTER WAS TOLD ABOUT THIS AND SHE SAID THAT LINDA BE FINE. DR POWER CALLED THE FLOOR AND ASKED THIS NURSE WHAT THE NEW [facility] WAS AND THIS NURSE HAD TOLD HER IT HAD GONE UP TO 8.4. DR POWER GAVE THE APPROVAL FOR THE PT TO GO AHEAD AND BE DISCHARGED. DR PATTEN HAS APPROVED FOR PT TO BE DISCHARGED WELL. THIS NURSE ATTEMPTED TO CALL [facility] AND GIVE REPORT TO THEM. THIS NURSE CALLED THE FACILITY THREE TIMES, AND SPOKE TO RU HAMMOND. THAT NURSE TOLD ME MULTIPLE TIMES THAT THERE WAS NO REGISTERED NURSE AT THE FACILITY TO ADMIT THE PT. SHE CALLED HER CHILDCARE TEACHER AND WAS TOLD TO TELL ME THAT THEY WERE NOT ABLE TO ACCEPT ANY PTS AFTER 1700 BECAUSE THERE IS NOT A REGISTERED NURSE AVAILABLE AT THE FACILITY TO TAKE AND ADMIT THE PTS AFTER 1700. THIS NURSE ASKED IF I COULD SPEAK TO A CHILDCARE TEACHER AND GET A NUMBER TO CALL SOMEONE OVER HER BUT SHE STATED SHE IS NOT ALLOWED TO GIVE OUT NAMES OR NUMBERS. THIS NURSE THEN WENT AND EXPLAINED TO THE PT AND HER DAUGHTER, EUSEBIO, WHAT WAS GOING ON. EUSEBIO WAS UPSET WITH [facility] BUT SEEMED TO UNDERSTAND. THIS NURSE APOLOGIZED SEVERAL TIMES AND I OFFERED EUSEBIO A GAS CARD. SHE WAS IN A HURRY TO GET HOME SO SHE REFUSED IT, BUT THIS NURSE GAVE IT TO THE CHARGE NURSE WHO IN TURN GAVE IT TO THE SUPPLIER QUALITY ENGINEERING MANAGER CHARGE NURSE AND WILL GIVE IT BACK TO DAY SHIFT CHARGE IN THE MORNING TO GIVE TO EUSEBIO, THE DAUGHTER, TOMORROW. THIS NURSE FILLED OUT THE R.E.A.C.T. FORM AND ATTACHED IT TO THE PTS CHART. THIS NURSE NOTIFIED DR POWER OF EVERYTHING THAT HAPPENED. DR POWER SAID TO LET THE PT STAY AND THAT SHE WOULD NOTIFY DR PATTEN OF THIS WELL. THE PT CAN LEAVE IN THE MORNING PER DR. POWER. WE WILL CONTINUE TO MONITOR PT THROUGHOUT HER STAY AND DO OUR BEST TO ACCOMMODATE ANY AND ALL NEEDS.
[2021-03-24 20:25] VITALS: BP 129/68; PULSE 69; RESP 18; TEMP 36.6; O2SAT 94
[2021-03-24] MEDS: mirtazapine 15 mg Tablet PO (20:38)
[2021-03-25 00:19] VITALS: BP 107/62; PULSE 58; RESP 20; TEMP 36.3; O2SAT 91
[2021-03-25 04:22] VITALS: BP 122/65; PULSE 62; RESP 18; TEMP 36.7; O2SAT 95
[2021-03-25] MEDS: acetaminophen 500 mg Tablet 1000 MG PO (06:01)
[2021-03-25 06:16] LABS: Basophils % 0.7 %; Eosinophils # 0.2 10^3/uL (0.0-0.8); Eosinophils % 4.5 %; Hemoglobin 7.6 g/dL (11.5-15.3); Lymphocytes # 1.5 10^3/uL (0.8-4.8); Lymphocytes % 28.4 %; Mean Corpuscular HGB Conc 30.4 g/dL (30.0-36.0); Mean Corpuscular Hemoglobin 32.1 pg (28.0-34.0); Mean Corpuscular Volume 105.5 fl (81-99); Mean Platelet Volume 9.8 fL (7.4-10.4); Monocytes # 0.3 10^3/uL (0.2-0.9); Monocytes % 5.9 %; Neutrophils # 3.21 10^3/uL (1.8-7.7); Neutrophils % 59.8 %; Nucleated Red Blood Cells % 0 %; Platelet Count 180 10^3/cmm (130-400); Red Blood Count 2.37 10^6/uL (4.1-5.3); Red Cell Distribution Width 14.2 % (12.1-15.1); White Blood Count 5.4 10^3/uL (4.0-10.0)
[2021-03-25 06:35] LABS: Anion Gap 10.2 (5-19); Blood Urea Nitrogen 27 mg/dL (8-23); Calcium 7.9 mg/dL (8.5-10.5); Carbon Dioxide 23 mmol/L (22-29); Chloride 111 mmol/L (98-107); Glucose 96 mg/dL (65-115); Magnesium 1.9 mg/dL (1.7-2.3); Osmolality Calculated 295 mOsm/kg (285-295); Potassium 4.2 mmol/L (3.5-5.1); Sodium 140 mmol/L (136-145)
[2021-03-25 07:57] VITALS: BP 128/69; PULSE 59; RESP 18; TEMP 36.4; O2SAT 98
[2021-03-25 08:05] VITALS: PULSE 63; RESP 16; O2SAT 97
[2021-03-25] MEDS: gabapentin 100 mg Capsule 200 MG PO (08:32)
[2021-03-25] MEDS: amiodarone 200 mg Tablet 100 MG PO (08:33)
[2021-03-25] MEDS: multivitamin therapeutic Tablet 1 TAB PO (08:33)
[2021-03-25] MEDS: pantoprazole DR 40 mg Tablet PO (08:33)
[2021-03-25] MEDS: levothyroxine 88 mcg Tablet PO (08:33)
[2021-03-25] MEDS: CELEcoxib 200 mg Capsule PO (08:34)
[2021-03-25] MEDS: cholecalciferol (vitamin D3) 1,000 unit Tablet 1000 UNIT PO (08:34)
[2021-03-25] MEDS: calcium carbonate 500 mg Chew Tablet 1000 MG PO (08:34)
[2021-03-25] MEDS: apixaban 5 mg Tablet PO (08:34)
[2021-03-25] MEDS: iron polysaccharide complex 150 mg Capsule PO (08:34)
[2021-03-25 09:50] LABS: Hematocrit 26.1 % (37.0-47.0)
[2021-03-25 11:06] VITALS: PULSE 63; RESP 16; O2SAT 97
--- NOTE | 2021-03-27 14:59 | PC.RESP ---
PULMONARY REHAB INFORMATION SENT TO PATIENT.
== END 2021-03-25 10:55 | disposition skilled nursing facility (03) | DRG 470 ==
LOC: MEDSURG 18:26
PROVIDERS: Internal Medicine; Admitting Provider Specialist; PCP Family Medicine; Visit Provider Specialist
PROC: 0SRD0JA Replacement of Left Knee Joint with Synthetic Substitute, Uncemented, Open Approach (ICD-10-PCS; CPT 27447; principal; 2021-03-21 14:20)
DX: M17.12 Unilateral primary osteoarthritis, left knee (principal); I48.20 Chronic atrial fibrillation, unspecified; N17.9 Acute kidney failure, unspecified; N18.9 Chronic kidney disease, unspecified; J44.9 Chronic obstructive pulmonary disease, unspecified; E03.9 Hypothyroidism, unspecified; R00.1 Bradycardia, unspecified; R41.82 Altered mental status, unspecified; Z96.651 Presence of right artificial knee joint; Z86.711 Personal history of pulmonary embolism; Z79.01 Long term (current) use of anticoagulants
CPT/HCPCS: 36415; 51702; 70450; 73560; 73562; 80048; 80053; 81001; 83735; 84100; 85014; 85018; 85025; 93005; 94640; 97110; 97161; 97165; 97530; 97535; C1776; J0690; J2704; J2795; J3370; J7030; J7611

== ENCOUNTER → 2021-04-03 13:02 | Outpatient (BNVA) | payer OTHER, MEDICAID, SELFPAY | PROVIDERS: PCP Family Medicine; Visit Provider Specialist | DX: Z47.1 Aftercare following joint replacement surgery (principal); Z96.652 Presence of left artificial knee joint | CPT/HCPCS: 73560; 73565 ==

== ENCOUNTER → 2021-05-15 13:17 | Outpatient (BNVA) | payer MEDICARE, MEDICAID, SELFPAY | PROVIDERS: PCP Family Medicine; Visit Provider Specialist | DX: Z96.652 Presence of left artificial knee joint (principal); Z98.890 Other specified postprocedural states | CPT/HCPCS: 73560; 73565 ==

== ENCOUNTER → 2021-07-05 11:09 | Outpatient (BNVA) | payer MEDICARE, MEDICAID, SELFPAY | PROVIDERS: PCP Family Medicine; Visit Provider Specialist | DX: Z96.652 Presence of left artificial knee joint (principal) | CPT/HCPCS: 73560; 73565 ==